=== PATIENT | female | born 2005 | race Two or more races ===

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

== ENCOUNTER 2023-01-22 15:26 | Emergency (ER) | payer MEDICAID, SELFPAY ==
--- NOTE | ~2023-01-22 | CT_ITS ---
EXAMINATION: CT ABDOMEN AND PELVIS WITH CONTRAST CLINICAL INFORMATION: Epigastric, right lower quadrant pain. COMPARISON: None TECHNIQUE: Multidetector volumetric images were obtained from the superior aspect of the liver through the pubic symphysis following administration 85 mL of Omnipaque 350 intravenous contrast. Sagittal and coronal reformatted images were obtained on the technologist's workstation. Oral contrast: No This CT examination was performed using dose optimization techniques as appropriate, variously including the following: *Automated exposure control *Adjustment of mA and/or kV according to patient size (this includes techniques or standardized protocols for targeted exams where dose is matched to indication/reason for exam; i.e. extremities or head) *Use of iterative reconstruction technique DLP: 1360 mGy-cm FINDINGS: LUNG BASES: The visualized lung bases are unremarkable. LIVER, GALLBLADDER, AND BILIARY TREE: The liver is normal in size, shape, and attenuation. No focal hepatic lesion or biliary ductal dilatation is present. The gallbladder is unremarkable with no evidence of radiopaque gallstones, gallbladder wall thickening, or obvious pericholecystic inflammatory changes. PANCREAS: Unremarkable. SPLEEN: Unremarkable. ADRENAL GLANDS: Unremarkable. KIDNEYS AND URETERS: The kidneys are normal in size, shape, and attenuation. No hydronephrosis, hydroureter, or calculi seen. No perinephric stranding. BLADDER: Unremarkable. GASTROINTESTINAL TRACT: There is scattered stool, diverticuli and gas seen throughout the colon without distention. The small bowel loops are normal caliber. Appendix appears normal. No inflammatory process seen in the abdomen. ABDOMINAL WALL: A small umbilical hernia containing fat is noted. LYMPH NODES: Normal. VASCULAR: Unremarkable. PELVIC VISCERA: The uterus is anteverted and appears unremarkable. OSSEOUS STRUCTURES: No aggressive lytic or sclerotic process seen. CT/CT abdomen pelvis w IV con IMPRESSION: 1. No acute intra-abdominal process seen. 2. Scattered colonic diverticulosis without diverticulitis. Fleischner guidelines were followed.
--- NOTE | ~2023-01-22 | US_ITS ---
EXAMINATION: US ABDOMEN LIMITED CLINICAL INFORMATION: Right upper quadrant pain and vomiting.. COMPARISON: None TECHNIQUE: Real-time imaging of the right upper quadrant abdominal viscera. FINDINGS: PANCREAS: Normal. LIVER: The liver is normal in size. The liver contour is normal. Parenchymal echogenicity is slightly increased. No focal hepatic lesion. There is no intrahepatic biliary duct dilatation seen. GALLBLADDER: Normal. The gallbladder is physiologically distended without evidence of stones, sludge, polyps, wall thickening or pericholecystic fluid. COMMON BILE DUCT: Normal in caliber measuring 0.44 cm in diameter. RIGHT KIDNEY: Normal. No hydronephrosis. No renal calculi or focal parenchymal lesions. The kidney measures 11.8 cm in maximum dimension. FREE FLUID: None. US/US abdomen limited IMPRESSION: Mild hepatic fatty infiltration. No focal lesion seen. The gallbladder is unremarkable.
--- NOTE | ~2023-01-22 | XR_ITS ---
EXAMINATION: XR CHEST CLINICAL INFORMATION: SOB and wheezing COMPARISON: None TECHNIQUE: Frontal view of the chest was obtained. FINDINGS: No significant abnormality is noted involving the heart, lungs, mediastinum, bony thorax or soft tissues. XR/XR chest 1V IMPRESSION: Unremarkable chest examination.
[2023-01-22 16:07] VITALS: BP 170/82; PULSE 105; RESP 20; TEMP 36.6; O2SAT 98; BMI 54.3
--- NOTE | 2023-01-22 16:08 | ED_ITS ---
HPI - Abdominal Pain General Chief Complaint: Abdominal Pain <MICHAEL Kebede - Last Filed: 01/22/23 16:12> Stated Complaint: Abdominal Pain/ Diff Breathing <MICHAEL Kebede Last Filed: 01/22/23 16:12> Time Seen by Provider: 01/22/23 16:47 <MICHAEL Kebede Last Filed: 01/22/23 16:12> Source: patient <MICHAEL Galeana - Last Filed: 01/22/23 20:45> Mode of arrival: ambulatory <MICHAEL Galeana Last Filed: 01/22/23 20:45> Limitations: no limitations <MICHAEL Galeana Last Filed: 01/22/23 20:45> History of Present Illness HPI narrative: This is a 17-year-old female hx of asthma presenting to the emergency department with complaints of abdominal pain, nausea, vomiting, dry cough, wheezing and shortness of breath for 2 days worsening. Patient reports abdominal pain is located in the epigastric region and radiates out words in down to the right lower quadrant, describes as sharp, intermittent, severe pain. Also reporting shortness of breath and wheezing tells me she has a history of asthma in this feels like her typical asthma. Denies any recent sick contacts, hx of malignancy, long travel, hx of PE/DV, hypercoagulable do. Denies chest pain, fevers, chills, headache, vision changes, dizziness, weakness, josue tochezia, hematemesis, diarrhea, LE swelling or pain <MICHAEL Galeana Last Filed: 01/22/23 20:45> Related Data Home Medications: Previous Rx's Medication Instructions Recorded azithromycin 250 mg tablet See Rx Instructions PO .COMPLEX #6 10/31/22 (Zithromax Z-[place]) tabs guaifenesin 1,200 mg tablet, 1,200 mg PO BID #10 tabs 10/31/22 extended release 12 hr (Mucinex) hydrocodone-homatropine 5 mg-1.5 5 ml PO Q4-6H PRN cough #60 mL 10/31/22 mg/5 mL (5 mL) oral syrup (Hycodan) prednisone 50 mg tablet 50 mg PO DAILY #5 tabs 12/15/22 metformin 500 mg tablet 500 mg PO BID #60 tabs 12/10/22 albuterol sulfate 90 mcg/actuation 2 inh inhalation Q4-6H PRN 01/22/23 breath activated powder inhaler shortness of breath or wheezing #1 ea benzonatate 100 mg capsule 100 mg PO BID PRN cough #20 caps 01/22/23 prednisone 20 mg tablet 40 mg PO DAILY 5 days #10 tabs 01/22/23 <MICHAEL Kebede - Last Filed: 01/22/23 16:12> Allergies/Adverse Reactions: Allergies Allergy/AdvReac Type Severity Reaction Status Date / Time No Known Allergies Allergy Verified 01/22/23 16:07 <MICHAEL Kebede - Last Filed: 01/22/23 16:12> Review of Systems Review of Systems Constitutional : No Weight loss, No Fever, No Chills, + Fatigue, + Malaise ENT/Mouth : No sore throat, No Rhinorrhea Eyes: No Eye Pain, No Swelling, No Redness Cardiovascular : No Chest Pain, + SOB, No Dyspnea on Exertion, No Orthopnea, No Edema, No Palpitations Respiratory : + Cough, No Sputum, + Wheezing Gastrointestinal : + Nausea, + Vomiting, No Diarrhea, No Constipation, + abdominal Pain, No Hematochezia, No Melena Genitourinary : No Dysuria, No Urinary Frequency, No Hematuria, Musculoskeletal : No joint pain, No Myalgias, No Joint Swelling Skin : No Skin Lesions, No rash Neuro : No Weakness, No Numbness, No Dizziness, No Headache Psych : No Anxiety/Panic, No Depression All other systems reviewed and are negative <MICHAEL Galeana - Last Filed: 01/22/23 20:45> Yes all other systems are reviewed and are negative <MICHAEL Galeana - Last Filed: 01/22/23 20:45> [facility] Past Medical History Attestation statement: The following information was validated with the patient. <MICHAEL Galeana - Last Filed: 01/22/23 20:45> Source: old records reviewed and nursing notes reviewed <MICHAEL Galeana Last Filed: 01/22/23 20:45> Social History Social History: Social History Alcohol intake: never Smoked in Last 30 Days: No Use of substances other than those prescribed or required for medical reasons: No Advance Directives: No Advance Directives Information Provided: No Patient : No <MICHEAL Kebede - Last Filed: 01/22/23 16:12> Physical Exam ED Vital Signs: Vital Signs - 24 hr 01/22/23 16:07 01/22/23 16:52 01/22/23 18:27 Temperature 97.9 F 97.6 F Pulse Rate 105 H 106 H 99 Respiratory Rate 20 20 18 Blood Pressure 170/82 H 155/83 H Pulse Oximetry 98 100 Oxygen Delivery Method Room Air Room Air 01/22/23 19:50 01/22/23 20:22 Temperature 98.4 F Pulse Rate 120 H 106 H Respiratory Rate 22 H 20 Blood Pressure 152/60 H 152/60 H Pulse Oximetry 98 98 Oxygen Delivery Method Room Air Room Air BMI result Body Mass Index 54.3 <MICHAEL Kebede - Last Filed: 01/22/23 16:12> Vital Signs - 24 hr 01/22/23 16:07 01/22/23 16:52 01/22/23 18:27 Temperature 97.9 F 97.6 F Pulse Rate 105 H 106 H 99 Respiratory Rate 20 20 18 Blood Pressure 170/82 H 155/83 H Pulse Oximetry 98 100 Oxygen Delivery Method Room Air Room Air 01/22/23 19:50 01/22/23 20:22 Temperature 98.4 F Pulse Rate 120 H 106 H Respiratory Rate 22 H 20 Blood Pressure 152/60 H 152/60 H Pulse Oximetry 98 98 Oxygen Delivery Method Room Air Room Air BMI result Body Mass Index 54.3 Vital signs stable <MICHAEL Galeana - Last Filed: 01/22/23 20:45> Appearance: Alert.? Oriented X3.? No acute distress.? Head: Normocephalic, atraumatic, no step-offs or deformities Eyes: Pupils equal, round and reactive to light.? Neck: Normal inspection.? Neck supple.? CVS: Normal heart rate and rhythm.? Pulses normal.? Respiratory: No respiratory distress.? Breath sounds w/ expiratory wheezing throughout.? Abdomen: Soft and tenderness to palpation of epigastric, right lower quadrant region.? Skin: Skin warm and dry.? Normal skin color.? Normal skin turgor.? Extremities: No lower extremity edema.? No calf ttp, negative abraham b/l. 5/5 strength to bilateral upper and lower extremities Neuro: Oriented X 3.? No motor deficit.? No sensory deficit. CN 2-12 intact <MICHAEL Galeana - Last Filed: 01/22/23 20:45> Course Course Course Narrative: RME - 17 y/o female with history of morbid obesity, asthma, untreated HTN, untreated and recently diagnosed diabetic who presents to the ER for evaluation of sharp, constant upper abdominal & RUQ pain x 2 days. Worse with food. Also reports vomiting 3-4x over the last couple of days. No diarrhea. Also reports difficulty breathing and asthma flare. Scattered coarse BS and expiratory wheezes in triage. Speaking in complete sentences, SpO2 97%. BP 170/80 w/ HR 115 - reports 9/10 abd pain at this time. Plan: CXR, Labs, RUQ U/S <MICHAEL Kebede - Last Filed: 01/22/23 16:12> Reevaluation(s) Reevaluation #1: Patient's CBC appears to be around baseline. Chemistry with no acute findings requiring intervention. Lipase within normal limits. UA without infection. Urine negative. Ultrasound of abdomen and CT of the abdomen pelvis pending. <MICHAEL Galeana Last Filed: 01/22/23 20:45> Time: 18:05 <MICHAEL Galeana - Last Filed: 01/22/23 20:45> Reevaluation #2: Ultrasound of abdomen limited w/ mild hepatic infiltration. No focal lesion. Gallbladder unremarkable. CT of the abdomen and pelvis with no acute intra-abdominal process seen. <MICHAEL Galeana Last Filed: 01/22/23 20 :45> Time: 19:00 <MICHAEL Galeana Last Filed: 01/22/23 20:45> Reevaluation #3: Upon re-evaluation patient's abdomen is no longer tender to palpation she tells me her abdominal pain is gone. Reports that wheezing has improved after treatment and is no longer feeling short of breath. She is saturating 100% on room air. Denies chest pain. Suspect tachycardia was secondary to albuterol treatments. I do not suspect PE on this patient, no significant risk factors for pulmonary embolism. Advised to return with any new or worsening symptoms. Educated on worrisome signs and symptoms and when to return. Comfortable discharge home. <MICHAEL Galeana - Last Filed: 01/22/23 20:45> Time: 19:08 <MICHAEL Galeana - Last Filed: 01/22/23 20:45> Medical Decision Making Medical Decision Making [facility] Narrative: 1700 17-year-old female presents with nausea, vomiting, abdominal pain, dry cough, shortness of breath and wheezing x2 days. Physical exam significant for tenderness to palpation of epigastric, right lower quadrant region.? There is wheezing throughout all lung chanel on expiration. Concerns for possible cholecystitis versus appendicitis versus viral illness. Unlikely acute abdomen. Shortness of breath likely viral. I do not suspect PE, AAA or pneumonia. Plan at this time labs, imaging, urine. Will give albuterol treatment for wheezing. <MICHAEL Galeana - Last Filed: 01/22/23 20:45> Differential Diagnosis Differential Diagnoses: The differential diagnosis associated with the presentation includes <MICHAEL Galeana - Last Filed: 01/22/23 20:45> Concerns for possible cholecystitis versus appendicitis versus viral illness. Unlikely acute abdomen. Shortness of breath likely viral. I do not suspect PE, AAA or pneumonia. <MICHAEL Galeana - Last Filed: 01/22/23 20:45> Admission/Observation Consideration of admission/observation: Escalation of care including admission/observation considered <MICHAEL Galeana - Last Filed: 01/22/23 20:45> Lab Data [facility] Lab Attestation statement: I reviewed the patient's lab results. <MICHAEL Galeana - Last Filed: 01/22/23 20:45> Result Diagrams: 01/22/23 16:40 01/22/23 16:39 <MICHAEL Kebede - Last Filed: 01/22/23 16:12> Labs: Lab Results 03/08/23 03/08/23 03/08/23 Range/Units 16:39 16:39 16:39 WBC (4.8-10.8) X10*3/uL RBC (4.20-5.50) X10*6/uL Hgb (12.0-16.0) g/dl Hct (37.0-47.0) % MCV (80.0-98.0) fL MCH (27.0-33.0) pg MCHC (31.0-35.0) g/dl RDW (11.0-16.0) % Plt Count (160-400) X10*3/uL MPV (9.4-12.3) fL Immature Gran % (Auto) (0.0-0.4) % Neut % (Auto) (45-73) % Lymph % (Auto) (20-40) % [place] % (Auto) (2-11) % Eos % (Auto) (0-4) % Baso % (Auto) (0-2) % Lymph # (Auto) (1.2-4.9) X10*3/uL [place] # (Auto) (0.1-1.2) X10*3/uL Eos # (Auto) (0.0-0.4) X10*3/uL Baso # (Auto) (0.0-0.2) X10*3/uL Abs Immat Gran (auto) (0.00-0.03) X10*3/uL Absolute Neuts (auto) (2.0-8.3) x10*3/uL Absolute Nucleated RBC (0.0-0.012) X10*3/uL Nucleated RBC % (auto) (0.0-0.2) /100WBC Sodium 141 (135-145) mmol/L Potassium 3.7 (3.3-5.1) mmol/L Chloride 107 (96-108) mmol/L Carbon Dioxide 25 (22-29) mmol/L Anion Gap 13 (12-20) BUN 8 L (9-16) mg/dL Creatinine 0.82 (0.5-1.4) mg/dL Estim Creat Clear Calc 146.2 Estimated GFR > 60 Random Glucose 153 H (60-115) mg/dL Calcium 8.9 D (8.4-10.2) mg/dL Magnesium 1.8 (1.6-2.6) mg/dL Total Bilirubin 0.7 (0.0-1.0) mg/dL Direct Bilirubin 0.2 (0.0-0.5) mg/dL AST 14 (5-31) U/L ALT 12 (0-31) U/L Alkaline Phosphatase 64 (39-117) U/L Total Protein 6.7 (6.5-8.0) g/dL Albumin 3.9 (3.5-5.0) g/dL Lipase 31 (8-78) U/L Urine Color Yellow Urine Appearance Clear Urine pH 6.0 (5.0-9.0) Ur Specific [place] 1.020 (1.005-1.025) Urine Protein Trace (Neg-Trace) mg/dL Urine Glucose (UA) Negative (Negative) mg/dL Urine Ketones Trace (Negative) mg/dL Urine Blood Large (3+) H (Negative) Urine Nitrite Negative (Negative) Ur Leukocyte Esterase Trace H (Negative) Urine RBC 0-2 (0-2) /HPF Urine WBC 0-5 (0-5) /HPF Ur Squamous Epith Cells 0-2 (0-2) /HPF Urine Bacteria None Seen (None Seen) Hyaline Casts 0-2 (0-2) /LPF Urine Test NEGATIVE (NEGATIVE) 01/22/23 Range/Units 16:40 WBC 7.8 (4.8-10.8) X10*3/uL RBC 5.68 H (4.20-5.50) X10*6/uL Hgb 14.4 (12.0-16.0) g/dl Hct 42.5 (37.0-47.0) % MCV 74.8 L (80.0-98.0) fL MCH 25.4 L (27.0-33.0) pg MCHC 33.9 (31.0-35.0) g/dl RDW 12.9 (11.0-16.0) % Plt Count 380 D (160-400) X10*3/uL MPV 8.7 L (9.4-12.3) fL Immature Gran % (Auto) 0.4 (0.0-0.4) % Neut % (Auto) 71.2 (45-73) % Lymph % (Auto) 22.6 (20-40) % [place] % (Auto) 4.7 (2-11) % Eos % (Auto) 1.0 (0-4) % Baso % (Auto) 0.1 (0-2) % Lymph # (Auto) 1.8 (1.2-4.9) X10*3/uL [place] # (Auto) 0.4 (0.1-1.2) X10*3/uL Eos # (Auto) 0.1 (0.0-0.4) X10*3/uL Baso # (Auto) 0.0 (0.0-0.2) X10*3/uL Abs Immat Gran (auto) 0.03 (0.00-0.03) X10*3/uL Absolute Neuts (auto) 5.6 (2.0-8.3) x10*3/uL Absolute Nucleated RBC 0.000 (0.0-0.012) X10*3/uL Nucleated RBC % (auto) 0.0 (0.0-0.2) /100WBC Sodium (135-145) mmol/L Potassium (3.3-5.1) mmol/L Chloride (96-108) mmol/L Carbon Dioxide (22-29) mmol/L Anion Gap (12-20) BUN (9-16) mg/dL Creatinine (0.5-1.4) mg/dL Estim Creat Clear Calc Estimated GFR Random Glucose (60-115) mg/dL Calcium (8.4-10.2) mg/dL Magnesium (1.6-2.6) mg/dL Total Bilirubin (0.0-1.0) mg/dL Direct Bilirubin (0.0-0.5) mg/dL AST (5-31) U/L ALT (0-31) U/L Alkaline Phosphatase (39-117) U/L Total Protein (6.5-8.0) g/dL Albumin (3.5-5.0) g/dL Lipase (8-78) U/L Urine Color Urine Appearance Urine pH (5.0-9.0) Ur Specific [place] (1.005-1.025) Urine Protein (Neg-Trace) mg/dL Urine Glucose (UA) (Negative) mg/dL Urine Ketones (Negative) mg/dL Urine Blood (Negative) Urine Nitrite (Negative) Ur Leukocyte Esterase (Negative) Urine RBC (0-2) /HPF Urine WBC (0-5) /HPF Ur Squamous Epith Cells (0-2) /HPF Urine Bacteria (None Seen) Hyaline Casts (0-2) /LPF Urine Test (NEGATIVE) <MICHAEL Kebede - Last Filed: 01/22/23 16:12> Lab Results 01/22/23 01/22/23 01/22/23 Range/Units 16:39 16:39 16:39 WBC (4.8-10.8) X10*3/uL RBC (4.20-5.50) X10*6/uL Hgb (12.0-16.0) g/dl Hct (37.0-47.0) % MCV (80.0-98.0) fL MCH (27.0-33.0) pg MCHC (31.0-35.0) g/dl RDW (11.0-16.0) % Plt Count (160-400) X10*3/uL MPV (9.4-12.3) fL Immature Gran % (Auto) (0.0-0.4) % Neut % (Auto) (45-73) % Lymph % (Auto) (20-40) % [place] % (Auto) (2-11) % Eos % (Auto) (0-4) % Baso % (Auto) (0-2) % Lymph # (Auto) (1.2-4.9) X10*3/uL [place] # (Auto) (0.1-1.2) X10*3/uL Eos # (Auto) (0.0-0.4) X10*3/uL Baso # (Auto) (0.0-0.2) X10*3/uL Abs Immat Gran (auto) (0.00-0.03) X10*3/uL Absolute Neuts (auto) (2.0-8.3) x10*3/uL Absolute Nucleated RBC (0.0-0.012) X10*3/uL Nucleated RBC % (auto) (0.0-0.2) /100WBC Sodium 141 (135-145) mmol/L Potassium 3.7 (3.3-5.1) mmol/L Chloride 107 (96-108) mmol/L Carbon Dioxide 25 (22-29) mmol/L Anion Gap 13 (12-20) BUN 8 L (9-16) mg/dL Creatinine 0.82 (0.5-1.4) mg/dL Estim Creat Clear Calc 146.2 Estimated GFR > 60 Random Glucose 153 H (60-115) mg/dL Calcium 8.9 D (8.4-10.2) mg/dL Magnesium 1.8 (1.6-2.6) mg/dL Total Bilirubin 0.7 (0.0-1.0) mg/dL Direct Bilirubin 0.2 (0.0-0.5) mg/dL AST 14 (5-31) U/L ALT 12 (0-31) U/L Alkaline Phosphatase 64 (39-117) U/L Total Protein 6.7 (6.5-8.0) g/dL Albumin 3.9 (3.5-5.0) g/dL Lipase 31 (8-78) U/L Urine Color Yellow Urine Appearance Clear Urine pH 6.0 (5.0-9.0) Ur Specific [place] 1.020 (1.005-1.025) Urine Protein Trace (Neg-Trace) mg/dL Urine Glucose (UA) Negative (Negative) mg/dL Urine Ketones Trace (Negative) mg/dL Urine Blood Large (3+) H (Negative) Urine Nitrite Negative (Negative) Ur Leukocyte Esterase Trace H (Negative) Urine RBC 0-2 (0-2) /HPF Urine WBC 0-5 (0-5) /HPF Ur Squamous Epith Cells 0-2 (0-2) /HPF Urine Bacteria None Seen (None Seen) Hyaline Casts 0-2 (0-2) /LPF Urine Test NEGATIVE (NEGATIVE) 01/22/23 Range/Units 16:40 WBC 7.8 (4.8-10.8) X10*3/uL RBC 5.68 H (4.20-5.50) X10*6/uL Hgb 14.4 (12.0-16.0) g/dl Hct 42.5 (37.0-47.0) % MCV 74.8 L (80.0-98.0) fL MCH 25.4 L (27.0-33.0) pg MCHC 33.9 (31.0-35.0) g/dl RDW 12.9 (11.0-16.0) % Plt Count 380 D (160-400) X10*3/uL MPV 8.7 L (9.4-12.3) fL Immature Gran % (Auto) 0.4 (0.0-0.4) % Neut % (Auto) 71.2 (45-73) % Lymph % (Auto) 22.6 (20-40) % [place] % (Auto) 4.7 (2-11) % Eos % (Auto) 1.0 (0-4) % Baso % (Auto) 0.1 (0-2) % Lymph # (Auto) 1.8 (1.2-4.9) X10*3/uL [place] # (Auto) 0.4 (0.1-1.2) X10*3/uL Eos # (Auto) 0.1 (0.0-0.4) X10*3/uL Baso # (Auto) 0.0 (0.0-0.2) X10*3/uL Abs Immat Gran (auto) 0.03 (0.00-0.03) X10*3/uL Absolute Neuts (auto) 5.6 (2.0-8.3) x10*3/uL Absolute Nucleated RBC 0.000 (0.0-0.012) X10*3/uL Nucleated RBC % (auto) 0.0 (0.0-0.2) /100WBC Sodium (135-145) mmol/L Potassium (3.3-5.1) mmol/L Chloride (96-108) mmol/L Carbon Dioxide (22-29) mmol/L Anion Gap (12-20) BUN (9-16) mg/dL Creatinine (0.5-1.4) mg/dL Estim Creat Clear Calc Estimated GFR Random Glucose (60-115) mg/dL Calcium (8.4-10.2) mg/dL Magnesium (1.6-2.6) mg/dL Total Bilirubin (0.0-1.0) mg/dL Direct Bilirubin (0.0-0.5) mg/dL AST (5-31) U/L ALT (0-31) U/L Alkaline Phosphatase (39-117) U/L Total Protein (6.5-8.0) g/dL Albumin (3.5-5.0) g/dL Lipase (8-78) U/L Urine Color Urine Appearance Urine pH (5.0-9.0) Ur Specific [place] (1.005-1.025) Urine Protein (Neg-Trace) mg/dL Urine Glucose (UA) (Negative) mg/dL Urine Ketones (Negative) mg/dL Urine Blood (Negative) Urine Nitrite (Negative) Ur Leukocyte Esterase (Negative) Urine RBC (0-2) /HPF Urine WBC (0-5) /HPF Ur Squamous Epith Cells (0-2) /HPF Urine Bacteria (None Seen) Hyaline Casts (0-2) /LPF Urine Test (NEGATIVE) <MICHAEL Galeana - Last Filed: 01/22/23 20:45> Independent Interpretation I performed an independent interpretation of an: Ultrasound (US/US abdomen limited IMPRESSION: Mild hepatic fatty infiltration. No focal lesion seen. The gallbladder is unremarkable.) and CT Scan (CT/CT abdomen pelvis w IV con IMPRESSION: 1. No acute intra-abdominal process seen. 2. Scattered colonic diverticulosis without diverticulitis. Fleischner guidelines were followed.) <MICHAEL Galeana - Last Filed: 01/22/23 20:45> Radiology Impression Discussion of test interpretation with radiology: I have reviewed the radiologist's reading. <MICHAEL Galeana - Last Filed: 01/22/23 20:45> Core Measures AMI core measures followed: Yes <MICHAEL Galeana - Last Filed: 01/22/23 20:45> Measure exclusions: not indicated <MICHAEL Galeana - Last Filed: 01/22/23 20:45> Medications Administered Discontinued Medications Generic Name Dose Route Start Last Admin Trade Name Freq PRN Reason Stop Dose Admin Albuterol Sulfate 10 mg 01/22/23 17:29 01/22/23 18:23 Albuterol Sulfate (0.083%) 2.5 Mg/3 Ml Vial.Neb INHALE 01/22/23 17:30 10 mg ONCE ONE Administration Iohexol 100 ml 01/22/23 17:46 01/22/23 17:47 Iohexol 350 Mg/Ml 100 Ml Infus..Btl IV 01/22/23 17:47 100 ml ONCE ONE Administration Ketorolac Tromethamine 30 mg 01/22/23 17:58 01/22/23 18:23 Ketorolac Tromethamine 15 Mg/Ml Vial IVPUSH 01/22/23 17:59 30 mg ONCE ONE Administration <MICHAEL Kebede - Last Filed: 01/22/23 16:12> Medications Administered Discontinued Medications Generic Name Dose Route Start Last Admin Trade Name Blair PRN Reason Stop Dose Admin Albuterol Sulfate 10 mg 01/22/23 17:29 01/22/23 18:23 Albuterol Sulfate (0.083%) 2.5 Mg/3 Ml Vial.Neb INHALE 01/22/23 17:30 10 mg ONCE ONE Administration Iohexol 100 ml 01/22/23 17:46 01/22/23 17:47 Iohexol 350 Mg/Ml 100 Ml Infus..Btl IV 01/22/23 17:47 100 ml ONCE ONE Administration Ketorolac Tromethamine 30 mg 01/22/23 17:58 01/22/23 18:23 Ketorolac Tromethamine 15 Mg/Ml Vial IVPUSH 01/22/23 17:59 30 mg ONCE ONE Administration <MICHAEL Galeana - Last Filed: 01/22/23 20:45> Critical Care Time Critical Care Time Critical Care Time: No <MICHAEL Galeana - Last Filed: 01/22/23 20:45> Discharge Plan Discharge Clinical Impression: Abdominal pain, Nausea & vomiting, Cough <MICHAEL Kebede - Last Filed: 01/22/23 16:12> Patient Disposition: Home, Self-Care <MICHAEL Kebede - Last Filed: 01/22/23 16:12> Instructions: Acute Nausea and Vomiting (ED), Abdominal Pain (ED), Acute Cough (ED) <MICHAEL Kebede Last Filed: 01/22/23 16:12> Additional Instructions: Take your medications as prescribed. If you were prescribed antibiotics today, it is important that you take your medication to their entirety, do not skip any doses, do not finish them early. Follow-up with your primary care provider this week. Return to the emergency department with new or worsening symptoms. Such as fevers, chills, chest pain, shortness of breath, nausea, vomiting, dizziness, headache, vision changes, lethargy In case of emergency call 911 <MICHAEL Kebede - Last Filed: 01/22/23 16:12> Prescriptions: New benzonatate 100 mg capsule 100 mg PO BID PRN (Reason: cough) Qty: 20 0RF albuterol sulfate 90 mcg/actuation aerosol powdr breath activated 2 inh inhalation Q4-6H PRN (Reason: shortness of breath or wheezing) Qty: 1 0RF prednisone 20 mg tablet 40 mg PO DAILY 5 Days Qty: 10 0RF No Action prednisone 50 mg tablet 50 mg PO DAILY Qty: 5 0RF azithromycin [Zithromax Z-[place]] 250 mg tablet See Rx Instructions .ROUTE .COMPLEX Qty: 6 0RF Rx Instructions: take 500 mg today (day 1), then 250 mg for 4 days (days 2-5) Mucinex 1,200 mg tablet extended release 12hr 1,200 mg PO BID Qty: 10 0RF hydrocodone-homatropine [Hycodan] 5-1.5 mg/5 mL (5 mL) syrup 5 ml PO Q4-6H PRN (Reason: cough) Qty: 60 0RF Rx Instructions: Partial Fill upon patient request. metformin 500 mg tablet 500 mg PO BID Qty: 60 0RF <MICHAEL Kebede - Last Filed: 01/22/23 16:12> Referrals: [facility] [place] [facility] [Provider Group] - 1 week Felisa Osman MD [Primary Care Provider] - 2 days <MICHAEL Kebede - Last Filed: 01/22/23 16:12> Stand Alone Forms: Work/School Release <MICHAEL Kebede - Last Filed: 01/22/23 16:12> Interventions: ED Discharge Assessment Last Done: 01/22/23 20:24 <MICHAEL Kebede - Last Filed: 01/22/23 16:12> Discharge Date/Time: 01/22/23 20:24 <MICHAEL Kebede - Last Filed: 01/22/23 16:12>
[2023-01-22 16:47] LABS: MANUAL DIFF FLAG NO
[2023-01-22 16:51] LABS: Appearance Urine Clear; Color Urine Yellow; Glucose Urine UA Negative (Negative); Leukocyte Esterase Urine Trace (Negative); Nitrite Urine Negative (Negative); UMIC TRIGGER UACC YES; Urine Blood Large (3+) (Negative); Urine Ketones Trace mg/dL (Negative); Urine Protein Trace mg/dL (Neg-Trace)
[2023-01-22 16:52] VITALS: BP 155/83; PULSE 106; RESP 20; TEMP 36.4; O2SAT 100
[2023-01-22 16:57] LABS: UPreg QC Valid YES; Urine Pregnancy NEGATIVE (NEGATIVE)
[2023-01-22 16:57] LABS: Basophils Percent Auto 0.1 % (0-2); Eosinophils Absolute Auto 0.1 X10*3/uL (0.0-0.4); Hematocrit 42.5 % (37.0-47.0); Hemoglobin 14.4 g/dl (12.0-16.0); Imm Gran Abs Auto 0.03 X10*3/uL (0.00-0.03); Imm Gran Pct Auto 0.4 % (0.0-0.4); Lymphocytes Absolute Auto 1.8 X10*3/uL (1.2-4.9); Lymphocytes Percent Auto 22.6 % (20-40); Mean Corpuscular HGB Conc 33.9 g/dl (31.0-35.0); Mean Corpuscular Hemoglobin 25.4 pg (27.0-33.0); Mean Corpuscular Volume 74.8 fL (80.0-98.0); Mean Platelet Volume 8.7 fL (9.4-12.3); Monocytes Absolute Auto 0.4 X10*3/uL (0.1-1.2); Monocytes Percent Auto 4.7 % (2-11); Neutrophils Absolute Auto 5.6 x10*3/uL (2.0-8.3); Neutrophils Percent Auto 71.2 % (45-73); Platelet Count 380 X10*3/uL (160-400); Red Blood Count 5.68 X10*6/uL (4.20-5.50); Red Cell Distribution Width 12.9 % (11.0-16.0); White Blood Count 7.8 X10*3/uL (4.8-10.8)
[2023-01-22 17:07] LABS: Alanine Aminotransferase 12 U/L (0-31); Albumin Level 3.9 g/dL (3.5-5.0); Alkaline Phosphatase 64 U/L (39-117); Anion Gap 13 (12-20); Aspartate Amino Transferase 14 U/L (5-31); Bilirubin Direct 0.2 mg/dL (0.0-0.5); Bilirubin Total 0.7 mg/dL (0.0-1.0); Blood Urea Nitrogen 8 mg/dL (9-16); Calcium 8.9 mg/dL (8.4-10.2); Carbon Dioxide 25 mmol/L (22-29); Chloride 107 mmol/L (96-108); Creatinine Clr Calc Pharmacy 146.2; Estimated Glomerular Filt Rate > 60; Glucose Random 153 mg/dL (60-115); Lipase 31 U/L (8-78); Magnesium 1.8 mg/dL (1.6-2.6); Potassium 3.7 mmol/L (3.3-5.1); Sodium 141 mmol/L (135-145); Total Protein 6.7 g/dL (6.5-8.0)
[2023-01-22 17:18] LABS: Bacteria Urine None Seen (None Seen); Hyaline Casts Urine 0-2 /LPF (0-2); RBC Urine 0-2 /HPF (0-2); Squamous Epithelial Cell Urine 0-2 /HPF (0-2); WBC Urine 0-5 /HPF (0-5)
--- NOTE | 2023-01-22 17:23 | PC.NURSE ---
pt a&ox3, hypertensive, other vss, pt reporting RLQ and central abd pain 07/27, 20G IV placed left IV, additional lavender tube drawn, u/s at bedside. no new orders at this time.
[2023-01-22] MEDS: iohexoL 350 MG/ML 100 ML INFUS..BTL IV (17:47)
[2023-01-22] MEDS: Ketorolac Tromethamine 15 MG/ML VIAL 30 MG IVPUSH (18:23)
[2023-01-22] MEDS: Albuterol Sulfate (0.083%) 2.5 MG/3 ML VIAL.NEB 10 MG INHALE (18:23)
[2023-01-22 18:27] VITALS: PULSE 99; RESP 18; O2SAT 100
[2023-01-22 19:50] VITALS: BP 152/60; PULSE 120; RESP 22; TEMP 36.9; O2SAT 98
[2023-01-22 20:22] VITALS: BP 152/60; PULSE 106; RESP 20; O2SAT 98
--- NOTE | 2023-01-22 20:22 | PC.NURSE ---
Assumed care at 7:00pm from ABDIFATAH Rojas, denies any sob or chest pain, Reviewed discharge instructions from pt, pt verbalized understanding. Pt discharged home with family member. No sign of distress.
== END 2023-01-22 20:24 | disposition home or self-care (01) ==
PROVIDERS: Physician Assistant; Emergency Provider Student in an Organized Health Care Education/Training Program; PCP Family Medicine
DX: R10.11 Right upper quadrant pain (principal); R11.2 Nausea with vomiting, unspecified; R05.9 Cough, unspecified; R06.02 Shortness of breath; E11.9 Type 2 diabetes mellitus without complications; I10 Essential (primary) hypertension; J45.909 Unspecified asthma, uncomplicated; Z79.84 Long term (current) use of oral hypoglycemic drugs; Z79.899 Other long term (current) drug therapy
CPT/HCPCS: 36415; 71045; 74177; 76705; 80048; 80076; 81001; 81025; 83690; 83735; 85025; 94640; 96374; 99284; 99285; J1885; Q9967

== ENCOUNTER 2023-02-05 16:34 | Emergency (ER) | payer MEDICAID, SELFPAY | END 2023-02-05 17:45 | disposition left against medical advice (07) | PROVIDERS: Emergency Provider Emergency Medicine; PCP Family Medicine | DX: S89.90XA Unspecified injury of unspecified lower leg, initial encounter (principal); X58.XXXA Exposure to other specified factors, initial encounter ==

== ENCOUNTER 2023-08-04 17:04 | Outpatient (REF) | payer MEDICAID, SELFPAY ==
[2023-08-05 09:43] LABS: CT PCR NOT DETECTED (Not Detect.); NG PCR NOT DETECTED (Not Detect.)
== END 2023-08-04 17:05 | disposition home or self-care (01) ==
LOC: HO.HHCLNP 17:04
PROVIDERS: Visit Provider Advanced Practice Midwife
DX: Z11.3 Encounter for screening for infections with a predominantly sexual mode of transmission (principal); N93.9 Abnormal uterine and vaginal bleeding, unspecified
CPT/HCPCS: 0353U

== ENCOUNTER 2023-08-06 09:13 | Outpatient (AMB) | payer MEDICAID, SELFPAY ==
--- NOTE | 2023-08-06 09:13 | MHC.OFFVIS ---
Intake Vital Signs 08/06/23 09:19 Weight 329 lb BP 150/70 H Blood Pressure Location Rt brachial Position Sitting Pulse 101 H Intake Visit Reasons: Nexplanon removal Intake Note: This patient presents for a consultation for nexplanon removal. Patient c/o; nexplanon was attempted to be removed by PCP on 08/04/23 but it broke, 2.5 cm. Stage Driver Required: No Accompanied by: Self / Same As Patient Allergies Flu Shot Allergy (Severe, Uncoded 08/06/23 09:22) Unknown Medication List - Last Reconciled 08/06/23 by Bryon Rockwell MD albuterol sulfate 90 mcg/actuation 2 inhalations inhalation Q4-6H PRN loratadine 10 mg PO DAILY metformin 500 mg PO BID HPI Nexplanon removal HPI Details 17-year-old female referred for Nexplanon implant removal. She states that she had this placed a year and a half ago. However she feels that this has been causing her problems so she wanted removed. She that she did not have periods for more than 10 months since she had her implant done. She says her bulk materials handling plant operator had attempted to remove this under local anesthesia but a piece broke off. This was a 1.5 cm piece of the implant. He was therefore referred to me for removal of the rest of the implant . [facility] Medical History Morbid obesity Nexplanon in place Family History (Updated 08/06/23 @ 09:24 by GILBERT Garcia) Other Throat cancer Social History Alcohol intake: never Female Reproductive History Menstrual Date of last menstrual period: 07/28/23 Review of Systems Const Denies chills and Denies fever(s) Card Denies chest pain, Denies dyspnea and Denies dyspnea on exertion Resp Denies cough, Denies dyspnea and Denies dyspnea on exertion GI Denies hematochezia and Denies change in bowel habits Denies hematuria Musc Denies back pain and Denies limited range of motion Neuro Denies focal weakness and Denies convulsions Psych Denies depression and Denies mood swings Physical Exam Vital Signs: Last Vital Signs Pulse 101 H 08/06/23 09:19 BP 150/70 H 08/06/23 09:19 Const Other: Morbidly obese General: comfortable and no acute distress Orientation/consciousness: patient oriented x3 Neck Neck: Yes no lymphadenopathy Resp Auscultation: clear to auscultation bilaterally Cardio Rhythm: regular rhythm GI Palpation (GI): Soft to palpation, nontender and no guarding Neuro General: patient oriented x3 Extrem Other: Implant palpable on the inner aspect of the left upper arm, sent incisions seen as well, healed Assessment & Plan Assessment & Plan (1) Nexplanon in place: Code(s): Z97.5 - Presence of (intrauterine) contraceptive device Plan: She was referred for removal of the Nexplanon implant. Her bulk materials handling plant operator had attempted to remove this but only about 1.5 cm segment was removed. She was referred to me for removal the rest of the implant therefore I explained to the technique of removal of the rest of the implant under local anesthesia.. I reviewed the risks including but not limited to bleeding, infections, poor healing, postop pain, as well as the benefits and alternatives. She says she understands and agrees to proceed. She also understands what to expect postoperatively. Coding Level of Care Code New Pt Level 3 (68996) Diagnoses Nexplanon in place Z97.5
[2023-08-06 09:19] VITALS: BP 150/70; PULSE 101
== END 2023-08-06 09:36 | disposition home or self-care (01) ==
PROVIDERS: PCP Family Medicine; Visit Provider Surgery
DX: Z97.5 Presence of (intrauterine) contraceptive device (principal)
CPT/HCPCS: 99203

== ENCOUNTER → 2023-08-06 09:13 | Outpatient (BNVA) | payer MEDICAID, SELFPAY | PROVIDERS: PCP Family Medicine; Visit Provider Surgery ==

== ENCOUNTER 2023-08-20 12:38 | Outpatient (REF) | payer MEDICAID, SELFPAY ==
[2023-08-20 12:22] VITALS: BP 183/95; PULSE 95; RESP 20; TEMP 36.7; O2SAT 99; BMI 49.8
[2023-08-20 13:18] VITALS: BP 166/94; PULSE 86; RESP 19; O2SAT 99
--- NOTE | 2023-08-20 13:18 | P.OP_ITS ---
Operative Note Operative Note Date of Service: 08/20/23 Narrative: Preop diagnosis: Nexplanon implant left upper arm Postop diagnosis: The same Procedure: Removal of Nexplanon implant under local anesthesia from the left upper arm Surgeon:Bryon Rockwell MD the patient is a 17-year-old female here for removal of her Nexplanon implant. She stated that her manager merchandise had attempted to remove this but this had broken and a longer part was left in place. She understood the technique of the planned procedure as well as the risks, benefits, and alternatives. She was brought to the minor procedure room. She was placed supine with left arm abducted. The area of the implant which was palpable was prepped and draped. Lidocaine 1% was used for local anesthesia. I made an incision on the skin overlying the palpable implant using blade 15. This carried down with blunt dissection through the full-thickness of the skin and subcutaneous fat until the implant was directly visualized. I grasped with a clamp and proceeded to gently dissect this off of the rest of the subcutaneous layer until this was removed. This was sent as a specimen for gross exam. I closed the incision with full-thickness nylon 3-0 simple interrupted sutures. The procedure was completed. The patient tolerated the procedure well. There were no immediate complications. She was given wound care instructions.
== END 2023-08-20 12:39 | disposition home or self-care (01) ==
LOC: HO.MS 12:38
PROVIDERS: PCP Family Medicine; Visit Provider Surgery
PROC: (CPT 11982; principal; 2023-08-20 13:00)
DX: Z30.46 Encounter for surveillance of implantable subdermal contraceptive (principal)
CPT/HCPCS: 11982; 88300

== ENCOUNTER → 2023-08-20 12:38 | Outpatient (BNV) | payer MEDICAID, SELFPAY | PROVIDERS: PCP Family Medicine; Visit Provider Surgery | DX: Z30.46 Encounter for surveillance of implantable subdermal contraceptive (principal) | CPT/HCPCS: 11982 ==

== ENCOUNTER 2023-09-15 13:39 | Outpatient (AMB) | payer MEDICAID, SELFPAY ==
--- NOTE | 2023-09-15 13:42 | A.OFFVIS_ITS ---
Intake Vital Signs 09/15/23 13:49 Height 5 ft 4 in Weight 339 lb BMI 58.2 BP 141/65 H Blood Pressure Location Rt brachial Position Sitting Pulse 80 Intake Visit Reasons: s/p Nexplanon removal Intake Note: This patient presents for a post-op assessment status post Nexplanon removal. Patient c/o; reports no complaints. 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 She says she has been doing well and denies complaints. [facility] Medical History Morbid obesity Nexplanon in place Surgical History Nexplanon removal (~08/20/23) Family History Other Throat cancer Social History Alcohol intake: never Review of Systems Const Denies chills and Denies fever(s) Card Denies chest pain, Denies dyspnea and Denies dyspnea on exertion Resp Denies cough, Denies dyspnea and Denies dyspnea on exertion GI Denies hematochezia and Denies change in bowel habits Denies hematuria Musc Denies back pain and Denies limited range of motion Neuro Denies focal weakness and Denies convulsions Psych Denies depression and Denies mood swings Physical Exam Const General: comfortable and no acute distress Extrem Other: Incision on the left upper arm is well healed, not infected, sutures still in place Assessment & Plan Assessment & Plan (1) Nexplanon in place: Code(s): Z97.5 - Presence of (intrauterine) contraceptive device Plan: She is status post removal of a Nexplanon implant. She is doing well. The incision is well healed. I removed her sutures. She can follow up on a p.r.n. basis. Coding Level of Care Code Global (00342) Diagnoses Nexplanon in place Z97.5
[2023-09-15 13:49] VITALS: BP 141/65; PULSE 80; BMI 58.2
== END 2023-09-15 13:58 | disposition home or self-care (01) ==
PROVIDERS: PCP Family Medicine; Visit Provider Surgery
DX: Z09 Encounter for follow-up examination after completed treatment for conditions other than malignant neoplasm (principal)
CPT/HCPCS: 99212

== ENCOUNTER → 2023-09-15 13:39 | Outpatient (BNVA) | payer MEDICAID, SELFPAY | PROVIDERS: PCP Family Medicine; Visit Provider Surgery | DX: Z09 Encounter for follow-up examination after completed treatment for conditions other than malignant neoplasm (principal) | CPT/HCPCS: 99212 ==

== ENCOUNTER 2024-02-27 17:52 | Outpatient (REF) | payer MEDICAID, SELFPAY ==
[2024-02-28 02:55] LABS: CT PCR NOT DETECTED (Not Detect.); NG PCR NOT DETECTED (Not Detect.)
[2024-02-28 13:22] LABS: BV Int Neg Control Negative (Negative); BV Int Pos Control Positive (Positive)
== END 2024-02-27 17:53 | disposition home or self-care (01) ==
LOC: HO.HHCLNP 17:52
PROVIDERS: Visit Provider Emergency Medicine
DX: R39.9 Unspecified symptoms and signs involving the genitourinary system (principal); N89.8 Other specified noninflammatory disorders of vagina
CPT/HCPCS: 0353U; 87086; 87480; 87510; 87660

== ENCOUNTER 2024-04-02 11:07 | Inpatient (IN) | payer OTHER, SELFPAY ==
--- NOTE | 2024-04-02 | ECG_ITS ---
Test Reason : POISON CONTROL Blood Pressure : / mmHG Vent. Rate : 072 BPM Atrial Rate : 072 BPM P-R Int : 136 ms QRS Dur : 090 ms QT Int : 382 ms P-R-T Axes : 037 064 012 degrees QTc Int : 418 ms Normal sinus rhythm Normal ECG When compared with ECG of 02-APR-2024 11:36, No significant change was found Referred By: Laura Krishnan Electronically Signed By:GALINDO HAMMOND MD
[2024-04-02 11:22] VITALS: BP 144/83; BP 154/63; PULSE 104; PULSE 86; RESP 18; TEMP 37.1; O2SAT 99; BMI 61.4
--- NOTE | 2024-04-02 11:26 | ECG_ITS ---
Test Reason : overdose Blood Pressure : / mmHG Vent. Rate : 090 BPM Atrial Rate : 090 BPM P-R Int : 128 ms QRS Dur : 084 ms QT Int : 368 ms P-R-T Axes : 057 068 011 degrees QTc Int : 450 ms Normal sinus rhythm Normal ECG No previous ECGs available Referred By: Laura Krishnan Electronically Signed By:GALINDO HAMMOND MD
[2024-04-02] MEDS: Activated charcoaL 50 GM/240 ML ORAL.SUSP PO (11:32)
--- NOTE | 2024-04-02 11:46 | ED_ITS ---
HPI - Psych General Chief Complaint: Psychiatric Symptoms Stated Complaint: SI ATTEMPT Time Seen by Provider: 04/02/24 11:17 Source: patient and EMS Mode of arrival: EMS Limitations: no limitations History of Present Illness HPI Narrative: 18 yo female with depression, obesity, diabetes has been depressed lately does not have therapist and today she was feeling down and abruptly took approx 15 tablets of 25mg benadryl around 1030am. She states she has never done this before and it was impulsive. She states she isn't sure why if this was SI attempt MD complaint: feels depressed Onset (ago): week(s) Duration: getting worse History of same: Yes Relieving factors: none Exacerbating factors: other Context: significant life stressor Associated psychiatric symptoms: depression Associated symptoms: denies other symptoms If self harm: admits thoughts of self harm and intentional overdose Related Data Home Medications ?Medication ?Instructions ?Recorded ?Confirmed loratadine 10 mg tablet 10 mg PO DAILY 08/06/23 08/06/23 Previous Rx's ?Medication ?Instructions ?Recorded metformin 500 mg tablet 500 mg PO BID #60 tabs 12/10/22 albuterol sulfate 90 mcg/actuation 2 inh inhalation Q4-6H PRN 01/22/23 breath activated powder inhaler shortness of breath or wheezing #1 ea Allergies Allergy/AdvReac Type Severity Reaction Status Date / Time Flu Shot Allergy Severe Unknown Uncoded 04/02/24 11:23 Review of Systems 2 Review of Systems: Constitutional : No Fever, No Chills ENT/Mouth : No Ear Pain, No Nasal Congestion, No sore throat Eyes: No Eye Pain, No Swelling, No Redness Cardiovascular : No Chest Pain, No SOB Respiratory : No Cough, No Sputum, No Dyspnea Gastrointestinal : No Nausea, No Vomiting, No Diarrhea, No Hematochezia, No Melena Genitourinary : No Dysuria, No Urinary Frequency, No Hematuria Musculoskeletal : No Myalgias Skin : No Skin Lesions, No rash Neuro : No Weakness, No Numbness, No Paresthesias, No Dizziness, No Headache Psych : positive Anxiety, positive Depression, positive SI no HI All other systems reviewed and are negative [facility] Past Medical History Attestation statement: The following information was validated with the patient. Source: old records reviewed Medical History Morbid obesity Nexplanon in place Surgical History Nexplanon removal (~08/20/23) Family History Family History Other Throat cancer Social History Social History (Updated 04/02/24 @ 12:01 by Laura Krishnan DO) Alcohol intake: never Patient Tobacco Use Status: Never used Tobacco Smoked in Last 30 Days: No Use of substances other than those prescribed or required for medical reasons: Yes Substance Use Type: Marijuana Advance Directives: No Advance Directives Information Provided: No Patient : No Physical Exam 2 Vital Signs: Vital Signs: Last Vital Signs Temp 98.7 F 04/02/24 11:22 Pulse 86 04/02/24 11:22 Resp 18 04/02/24 11:22 BP 154/63 H 04/02/24 11:22 Pulse Ox 99 04/02/24 11:22 O2 Del Method Room Air 04/02/24 11:22 BMI result Body Mass Index 61.4 Appearance: Alert. Oriented X3. No acute distress. Eyes: Pupils equal, round and reactive to light. ENT: Pharynx normal. Neck: Normal inspection. Neck supple. CVS: Normal heart rate and rhythm. Pulses normal. Respiratory: No respiratory distress. Breath sounds normal. Abdomen: Soft and nontender. Skin: Skin warm and dry. Normal skin color. Normal skin turgor. Extremities: No lower extremity edema. No calf ttp Neuro: Oriented X 3. No motor deficit. No sensory deficit. CN2-12 intact Course Course Course Narrative: up and eating more alert Medications Administered Discontinued Medications Generic Name Dose Route Start Last Admin Trade Name Blair PRN Reason Stop Dose Admin Charcoal 50 gm 04/02/24 11:26 04/02/24 11:32 Activated Charcoal 50 Gm/240 Ml Oral.Susp PO 04/02/24 11:27 50 gm ONCE ONE Administration Potassium Chloride 40 meq 04/02/24 13:53 04/02/24 14:44 Potassium Chloride Packet 20 Meq Packet PO 04/02/24 13:54 40 meq ONCE ONE Administration Medical Decision Making Medical Decision Making [facility] Narrative: 18 yo female with depression, obesity, diabetes here with c/o intentional benadryl overdose in setting of depression - at this time she drank charcoal already at 1 hour seymour, EKG, labs and CARE team consult - poison control recommends observation for 6 hours Differential Diagnosis Differential Diagnoses: The differential diagnosis associated with the presentation includes ingestion, depression, SI attempt Admission/Observation Consideration of admission/observation: Escalation of care including admission/observation considered physician observation started at 1155am pending medical clearance and CARE team consult Consult Healthcare Provider Management of the patient was discussed with: Supervisor [facility] Provider monitor for anticholinergic symptoms, monitor for 6 hours Lab Data [facility] Lab Attestation statement: I reviewed the patient's lab results. 04/02/24 12:00 04/02/24 12:00 Labs: Lab Results 04/02/24 Range/Units 12:00 WBC 4.6 L (4.8-10.8) X10*3/uL RBC 5.08 (4.20-5.50) X10*6/uL Hgb 12.6 (12.0-16.0) g/dl Hct 38.2 (37.0-47.0) % MCV 75.2 L (80.0-98.0) fL MCH 24.8 L (27.0-33.0) pg MCHC 33.0 (31.0-35.0) g/dl RDW 14.2 (11.0-16.0) % Plt Count 312 (160-400) X10*3/uL MPV 8.6 L (9.4-12.3) fL Immature Gran % (Auto) 0.2 (0.0-0.4) % Neut % (Auto) 58.0 (45-73) % Lymph % (Auto) 31.9 (20-40) % [place] % (Auto) 7.3 (2-11) % Eos % (Auto) 2.2 (0-4) % Baso % (Auto) 0.4 (0-2) % Lymph # (Auto) 1.5 (1.2-4.9) X10*3/uL [place] # (Auto) 0.3 (0.1-1.2) X10*3/uL Eos # (Auto) 0.1 (0.0-0.4) X10*3/uL Baso # (Auto) 0.0 (0.0-0.2) X10*3/uL Abs Immat Gran (auto) 0.01 (0.00-0.03) X10*3/uL Absolute Neuts (auto) 2.7 (2.0-8.3) x10*3/uL Absolute Nucleated RBC 0.000 (0.0-0.012) X10*3/uL Nucleated RBC % (auto) 0.0 (0.0-0.2) /100WBC Sodium 140 (135-145) mmol/L Potassium 3.6 (3.3-5.1) mmol/L Chloride 109 H (96-108) mmol/L Carbon Dioxide 22 (22-29) mmol/L Anion Gap 13 (12-20) BUN 9 (9-16) mg/dL Creatinine 0.81 (0.5-1.4) mg/dL Estim Creat Clear Calc 297.4 Estimated GFR > 60 Random Glucose 144 H (60-115) mg/dL Calcium 8.5 (8.4-10.2) mg/dL Magnesium 2.0 (1.6-2.6) mg/dL Total Bilirubin 0.5 (0.0-1.0) mg/dL Direct Bilirubin 0.2 (0.0-0.5) mg/dL AST 17 (5-31) U/L ALT 16 (0-31) U/L Alkaline Phosphatase 59 (39-117) U/L Total Protein 7.3 (6.5-8.0) g/dL Albumin 3.8 (3.5-5.0) g/dL Lipase 19 (8-78) U/L Beta HCG, Quant < 2 mIU/mL Urine Color Yellow Urine Appearance Clear Urine pH 5.5 (5.0-9.0) Ur Specific [place] 1.020 (1.005-1.025) Urine Protein 30 (1+) H (Neg-Trace) mg/dL Urine Glucose (UA) Negative (Negative) mg/dL Urine Ketones Trace (Negative) mg/dL Urine Blood Moderate (2+) H (Negative) Urine Nitrite Negative (Negative) Ur Leukocyte Esterase Negative (Negative) Urine RBC 11-20 H (0-2) /HPF Urine WBC 0-5 (0-5) /HPF Ur Squamous Epith Cells 3-5 (0-2) /HPF Urine Bacteria None Seen (None Seen) Hyaline Casts 6-10 (0-2) /LPF Salicylates < 5.0 L (15-30) mg/dL Urine Opiates Screen Not Detected (Not Detect) Ur Buprenorphine Scrn Not Detected (Not Detect) ng/mL Ur Oxycodone Screen Not Detected (Not Detect) ng/mL Urine Methadone Screen Not Detected (Not Detect) ng/mL Urine Fentanyl Screen Not Detected (Not Detect) Acetaminophen < 3 (<30) mcg/mL Ur Barbiturates Screen Not Detected (Not Detect) Ur Phencyclidine Scrn Not Detected (Not Detect) Ur Amphetamines Screen Not Detected (Not Detect) U Benzodiazepines Scrn Not Detected (Not Detect) Urine Cocaine Screen Not Detected (Not Detect) U Marijuana (THC) Screen POSITIVE H (Not Detect) Ethyl Alcohol < 10 mg/dL Independent Interpretation I performed an independent interpretation of an: EKG Interpretation: Rate: 90 Rhythm: NSR [place]: normal Normal P waves. Normal [place]. Normal QRS complex. ST T wave : normal no RENAN qTC: 450 prior studies: no acute ischemia The study has been interpreted contemporaneously by me. EKG#2 Rate: 72 Rhythm: NSR [place]: normal Normal P waves. Normal [place]. Normal QRS complex. ST T wave : normal no RENAN qTC: 418 prior studies: no acute ischemia The study has been interpreted contemporaneously by me. . Independent Historian Clinical information obtained from an independent historian. History obtained from or confirmed by: EMS External Record Review External record reviewed: Inpatient record Discharge Plan Discharge Clinical Impression: Depression, Intentional overdose Patient Disposition: Still a Patient Prescriptions: No Action albuterol sulfate 90 mcg/actuation aerosol powdr breath activated 2 inh inhalation Q4-6H PRN (Reason: shortness of breath or wheezing) Qty: 1 0RF metformin 500 mg tablet 500 mg PO BID Qty: 60 0RF loratadine 10 mg tablet 10 mg PO DAILY Interventions: Wilkin-Suicide Risk Severity Scale Last Done: 04/02/24 13:09 Print Language: Macanese
--- NOTE | 2024-04-02 11:54 | PC.NURSE ---
pt biba from home d/t intentional overdose d/t feelings of SI x yesterday. pt verbalizes ingesting approximately 15, 25mg of benadryl PO in attempts to harm herself. pt states she is unaware on if she was attempting to kill herself or not but states she has been increasingly depressed d/t life stressors at home. pt denies HI. 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 upon ED arrival - a&ox4, vss and up to date, nsr on the alarm security or surveillance monitor. pt c/o 5/10 abd pain. pt changed over by tech/belongings obtained. UA obtained/sent to lab. ekg performed by tech. pt consumed entire bottle of activated charcoal per provider order. poison control called by this RN (spoke w/ Elda). per Elda - monitor for anticholinergic effects/urinary retention/supplement magnesium/potassium as needed and to monitor for 6-8 hours. 1:1 sitter present. no sob/wob noted. respirations even and unlabored. plan of care ongoing. call matamoros placed within reach.
[2024-04-02 12:06] LABS: MANUAL DIFF FLAG NO
[2024-04-02 12:08] LABS: Basophils Percent Auto 0.4 % (0-2); Eosinophils Absolute Auto 0.1 X10*3/uL (0.0-0.4); Eosinophils Percent Auto 2.2 % (0-4); Hematocrit 38.2 % (37.0-47.0); Hemoglobin 12.6 g/dl (12.0-16.0); Imm Gran Abs Auto 0.01 X10*3/uL (0.00-0.03); Imm Gran Pct Auto 0.2 % (0.0-0.4); Lymphocytes Absolute Auto 1.5 X10*3/uL (1.2-4.9); Lymphocytes Percent Auto 31.9 % (20-40); Mean Corpuscular Hemoglobin 24.8 pg (27.0-33.0); Mean Corpuscular Volume 75.2 fL (80.0-98.0); Mean Platelet Volume 8.6 fL (9.4-12.3); Monocytes Absolute Auto 0.3 X10*3/uL (0.1-1.2); Monocytes Percent Auto 7.3 % (2-11); Neutrophils Absolute Auto 2.7 x10*3/uL (2.0-8.3); Platelet Count 312 X10*3/uL (160-400); Red Blood Count 5.08 X10*6/uL (4.20-5.50); Red Cell Distribution Width 14.2 % (11.0-16.0); White Blood Count 4.6 X10*3/uL (4.8-10.8)
[2024-04-02 12:10] LABS: Appearance Urine Clear; Color Urine Yellow; Glucose Urine UA Negative (Negative); Leukocyte Esterase Urine Negative (Negative); Nitrite Urine Negative (Negative); PH 5.5 (5.0-9.0); UMIC TRIGGER UACC YES; Urine Blood Moderate (2+) (Negative); Urine Ketones Trace mg/dL (Negative); Urine Protein 30 (1+) mg/dL (Neg-Trace)
[2024-04-02 12:18] LABS: Amphetamine Screen Urine Not Detected (Not Detect); Barbiturates, Urine Not Detected (Not Detect); Benzodiazepines Screen Urine Not Detected (Not Detect); Buprenorphine Scr Not Detected (Not Detect); Cannabinoid Screen Urine POSITIVE (Not Detect); Cocaine Screen Urine Not Detected (Not Detect); Fentanyl, urine Not Detected (Not Detect); Methadone Screen, Urine Not Detected (Not Detect); Opiate Screen Urine Not Detected (Not Detect); Oxycodone Screen Urine Not Detected (Not Detect); Phencyclidine Screen Urine Not Detected (Not Detect)
[2024-04-02 12:30] LABS: Bacteria Urine None Seen (None Seen); WBC Urine 0-5 /HPF (0-5)
[2024-04-02 12:34] LABS: Acetaminophen LAB < 3 mcg/mL (<30); Alanine Aminotransferase 16 U/L (0-31); Albumin Level 3.8 g/dL (3.5-5.0); Alkaline Phosphatase 59 U/L (39-117); Anion Gap 13 (12-20); Aspartate Amino Transferase 17 U/L (5-31); Bilirubin Direct 0.2 mg/dL (0.0-0.5); Bilirubin Total 0.5 mg/dL (0.0-1.0); Blood Urea Nitrogen 9 mg/dL (9-16); Calcium 8.5 mg/dL (8.4-10.2); Carbon Dioxide 22 mmol/L (22-29); Chloride 109 mmol/L (96-108); Creatinine Clr Calc Pharmacy 297.4; Estimated Glomerular Filt Rate > 60; Ethanol < 10 mg/dL; Glucose Random 144 mg/dL (60-115); HCG Quantitative < 2 mIU/mL; Lipase 19 U/L (8-78); Potassium 3.6 mmol/L (3.3-5.1); Salicylate < 5.0 mg/dL (15-30); Sodium 140 mmol/L (135-145); Total Protein 7.3 g/dL (6.5-8.0)
--- NOTE | 2024-04-02 12:35 | PC.NURSE ---
pt actively vomited onto herself. pt provided w/ fresh hospital attire (ligature free). respirations remain even and unlabored. 1:1 sitter remains present. call matamoros placed within reach.
--- NOTE | 2024-04-02 13:08 | PC.NURSE ---
family bedside for support. 1:1 sitter present.
--- NOTE | 2024-04-02 14:40 | PC.NURSE ---
repeat ekg obtained by tech. information given to poison control.
[2024-04-02] MEDS: Potassium Chloride Packet 20 MEQ PACKET 40 MEQ PO (14:44)
--- NOTE | 2024-04-02 14:50 | PC.NURSE ---
potassium administered per poison control protocol.
[2024-04-02 15:48] VITALS: PULSE 72; RESP 27
--- NOTE | 2024-04-02 17:29 | PC.NURSE ---
report given to ABDIFATAH Barron in the pod at this time.
--- NOTE | 2024-04-02 18:12 | MHC.EDTECH ---
Patient belongings moved from locker #9 to locker #5
--- NOTE | 2024-04-02 18:51 | MHC.EDTECH ---
Patient given dinner tray
--- NOTE | 2024-04-02 20:03 | MHC.CARE ---
Called Pt.'s grandmother Su [phone] x2 and the phone rings and then stops w/o option to leave a vm.
--- NOTE | 2024-04-02 22:11 | PC.NURSE ---
Med rec completed. PT reports that she was prescribed medications recently but never started them so no active home meds
[2024-04-03 00:53] VITALS: BP 161/85; PULSE 79; RESP 18; TEMP 36.9; O2SAT 100
--- NOTE | 2024-04-03 06:10 | PC.ADMIT ---
Pt. admitted on 04/02/24 at 23:58 from [facility]. She initially presented to the ED s/p intentional overdose of approx. 15 tabs of Benadryl 25mg at about 10:30 on 04/02/24. Pt. stated that this was an impulsive act following an argument with her grandmother, who she lives with. Pt. stated to [facility] care team clinician and to TW that she has had increasing depression over the past 2-3 weeks after her boyfriend had to move to [place] for his job. Pt. 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 She expressed concern that if she were not there to care for her grandmother that no one would care for the grandmother and she, the patient, would feel very guilty. On admission skin check was done. No open wounds cuts or bruises were found on patient's body and her hygiene appeared to be very good despite her obesity. She was A&O x 4 and was fully compliant with the admission process. On admission, she endorsed anxiety and depression but denied active suicidality and feels that her overdose was an impulsive act in response to the argument with her grandmother who she says is very mean to her. She further denied any HI, AH or VH. Following the admission pt. was oriented to the unit and to her room. She went to sleep and remained asleep for the rest of the night.
[2024-04-03 08:00] VITALS: BP 154/83; PULSE 82; RESP 16; TEMP 36.6; O2SAT 99
--- NOTE | 2024-04-03 12:14 | P.HPPS_ITS ---
HPI Date of Service: 04/03/24 Chief Complaint: depressed Sources of Information: patient interviewed, chart reviewed and crisis/core team assessment reviewed HPI Subjective Notes: Gonzalez Warning and Conditional Voluntary Narrative: Patient is a 18-year-old female, high school graduate, on a Section 12b, with limited psychiatric history who presents for intentional overdose in the face of psychosocial stressors. Patient's cousin Estefany visiting on the unit and patient wanted her to attend interview. Patient overall denies much anxiety or depression other than this past week. 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 Patient said that she feels she is getting blamed for everything this past week as her grandmother's irritable and argumentative with her. Patient said that she was sleeping and woke up to her grandmother berating her for some small and fraction. Patient said I blacked out... I did the pill thing.... I do not remember taking the pills, I just remember throwing up. My grandmother called 911. Patient reiterated she does not remember anything else about the incident. She denies any current SI or any history of SI or SA. Patient said she will never take it overdose again because being on the inpatient unit is scaring her. Patient agrees that she needs a therapist so that she can have someone to talk to but does not want to be on the unit. 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 Has somewhat of a strained relationship with her mother but says there is nothing negative, just the 2 are not emotionally close Substance History: Negative Trauma History: Alludes to some history but does not disclose Diagnostics Vital Signs (24Hr): Vital Signs - 24 hr 04/02/24 15:48 05/18/24 00:53 Temperature 98.5 F Pulse Rate 72 79 Respiratory Rate 27 H 18 Blood Pressure 161/85 H Pulse Oximetry 100 Oxygen Delivery Method Room Air BMI result Body Mass Index 61.4 Labs 04/02/24 12:00 04/02/24 12:00 Labs: Laboratory Results - last 48 hr 04/02/24 12:00 WBC 4.6 L RBC 5.08 Hgb 12.6 Hct 38.2 MCV 75.2 L MCH 24.8 L MCHC 33.0 RDW 14.2 Plt Count 312 MPV 8.6 L Immature Gran % (Auto) 0.2 Neut % (Auto) 58.0 Lymph % (Auto) 31.9 [place] % (Auto) 7.3 Eos % (Auto) 2.2 Baso % (Auto) 0.4 Lymph # (Auto) 1.5 [place] # (Auto) 0.3 Eos # (Auto) 0.1 Baso # (Auto) 0.0 Abs Immat Gran (auto) 0.01 Absolute Neuts (auto) 2.7 Absolute Nucleated RBC 0.000 Nucleated RBC % (auto) 0.0 Sodium 140 Potassium 3.6 Chloride 109 H Carbon Dioxide 22 Anion Gap 13 BUN 9 Creatinine 0.81 Estim Creat Clear Calc 297.4 Estimated GFR > 60 Random Glucose 144 H Calcium 8.5 Magnesium 2.0 Total Bilirubin 0.5 Direct Bilirubin 0.2 AST 17 ALT 16 Alkaline Phosphatase 59 Total Protein 7.3 Albumin 3.8 Lipase 19 Beta HCG, Quant < 2 Urine Color Yellow Urine Appearance Clear Urine pH 5.5 Ur Specific [place] 1.020 Urine Protein 30 (1+) H Urine Glucose (UA) Negative Urine Ketones Trace Urine Blood Moderate (2+) H Urine Nitrite Negative Ur Leukocyte Esterase Negative Urine RBC 11-20 H Urine WBC 0-5 Ur Squamous Epith Cells 3-5 Urine Bacteria None Seen Hyaline Casts 6-10 Salicylates < 5.0 L Urine Opiates Screen Not Detected Ur Buprenorphine Scrn Not Detected Ur Oxycodone Screen Not Detected Urine Methadone Screen Not Detected Urine Fentanyl Screen Not Detected Acetaminophen < 3 Ur Barbiturates Screen Not Detected Ur Phencyclidine Scrn Not Detected Ur Amphetamines Screen Not Detected U Benzodiazepines Scrn Not Detected Urine Cocaine Screen Not Detected U Marijuana (THC) Screen POSITIVE H Ethyl Alcohol < 10 Meds/Allergies Allergies Allergies Allergy/AdvReac Type Severity Reaction Status Date / Time Flu Shot Allergy Severe Unknown Uncoded 04/02/24 11:23 Mental Status Exam Mental Status Exam Narrative: Pt is alert and oriented; behavior is cooperative, calm but emotional and tearful; patient is not in distress; dressed in casual attire with unkempt hair but adequate hygiene; mood is described as okay and affect congruent, anxious; eye contact appropriate; Speech is normal rate, volume and prosody and not pressured; no psychomotor agitation/retardation present; thought process is organized and goal directed; Thought content is on on wanting discharge; otherwise pertinent to relevant topics and without any delusional content, paranoid ideations or grandiosity; denies any SI/HI. There is no evidence of perceptual disturbance. Patients insight and judgment impaired Assessment & Plan Assessment & Plan (1) Adjustment disorder with mixed disturbance of emotions and conduct: Status: Acute Code(s): F43.25 - Adjustment disorder with mixed disturbance of emotions and conduct Plan Patient is a 18-year-old female, high school graduate, on a Section 12b, with limited psychiatric history who presents for intentional overdose on Benadryl in the face of psychosocial stressors. Patient's cousin Estefany visiting on the unit and patient wanted her to attend interview. Patient overall denies much anxiety or depression other than this past week. 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 Patient said that she feels she is getting blamed for everything this past week as her grandmother's irritable and argumentative with her. Patient said that she was sleeping and woke up to her grandmother berating her for some small and fraction. Patient said I blacked out... I did the pill thing.... I do not remember taking the pills, I just remember throwing up. My grandmother called 911. Patient reiterated she does not remember anything else about the incident. She denies any current SI or any history of SI or SA. Patient said she will never take it overdose again because being on the inpatient unit is scaring her. Patient agrees that she needs a therapist so that she can have someone to talk to but does not want to be on the unit. Formulation/clinical reasoning: Patient somewhat reticent and not wanting to engage much other than to deny history of psychiatric symptoms. However care team note reports patient said she was depressed. Patient minimizing event and the fact that she got so emotionally upset that she blacked out and took an overdose. Currently patient has no outpatient support or therapist. Will monitor for the next few days. On admission she was too upset about having to stay on the unit that she was not open to discussing more of her history, symptoms or treatment. Plan: 12b Q 15 minute checks P.r.n. medication Patient educated on: diagnosis, medication risk/benefits and therapeutic strategies Informed Consent: understands and further education needed Reason for continued inpatient stay Substantial Risk for: rapid decompensation Statement Statement: I have reviewed the history and physical and performed a pertinent examination on my patient. No changes have occurred unless specified. If the History and Physical was not performed prior to admission, the Hospitalist's service will be consulted for completing the admission physical. Time Spent With Patient Time: Total time managing care of this patient today ____ minutes.
[2024-04-03 20:00] VITALS: BP 176/90; PULSE 89; RESP 20; TEMP 36.9; O2SAT 100
[2024-04-03 21:02] VITALS: BP 176/90
[2024-04-03] MEDS: cloNIDine HCL 0.1 MG TABLET PO (21:02)
[2024-04-03] MEDS: hydrOXYzine HCL 25 MG TABLET PO (21:36)
[2024-04-04 08:26] VITALS: BP 168/87; PULSE 86; RESP 16; TEMP 36.9; O2SAT 94
--- NOTE | 2024-04-04 09:31 | P.PNPSI_ITS ---
Subjective Subjective Date of Service: 04/04/24 Reason For Visit: depressed Interim History: Met with patient; discussed with team Patient opened up more today. She said she did not really want to take an overdose, she just want to sleep and make the interaction go away. Patient shared that recently her boyfriend moved to [place] though she does not think this was contributory towards her emotions; he wants her to move there with her but she has not sure. Patient talked more about her history and rarely does she get depressed and if so it only last for few hours and goes away. She does struggle with anxiety, what people think of her, worried she will not fit in, however she is able to talk herself through it and pushes herself to do things that make her anxious anyway. That said she tried hydroxyzine as a p.r.n. which he found helpful and will continue taking. She says in the past she was once tried on Prozac but it caused her to be excessively sad so it was discontinued. Patient shared about Denies any drug or alcohol use Mental Status Exam Mental Status Exam Narrative: Pt is alert and oriented; behavior is cooperative, calm but emotional and tearful; patient is not in distress; dressed in casual attire with adequate hygiene; mood is described as okay and affect congruent, anxious; eye contact appropriate; Speech is normal rate, volume and prosody and not pressured; no psychomotor agitation/retardation present; thought process is organized and goal directed; Thought content is on dealing with anxiety; wanting discharge; otherwise pertinent to relevant topics and without any delusional content, paranoid ideations or grandiosity; denies any SI/HI. There is no evidence of perceptual disturbance. Patients insight and judgment improved and fair. Diagnostics Vital Signs (24Hr): Vital Signs - 24 hr 04/03/24 20:00 04/03/24 21:02 Temperature 98.5 F Pulse Rate 89 Respiratory Rate 20 Blood Pressure 176/90 H 176/90 H Pulse Oximetry 100 Oxygen Delivery Method Room Air BMI result Body Mass Index 61.4 Labs 04/02/24 12:00 04/02/24 12:00 Labs: Laboratory Results - last 48 hr 04/02/24 12:00 WBC 4.6 L RBC 5.08 Hgb 12.6 Hct 38.2 MCV 75.2 L MCH 24.8 L MCHC 33.0 RDW 14.2 Plt Count 312 MPV 8.6 L Immature Gran % (Auto) 0.2 Neut % (Auto) 58.0 Lymph % (Auto) 31.9 [place] % (Auto) 7.3 Eos % (Auto) 2.2 Baso % (Auto) 0.4 Lymph # (Auto) 1.5 [place] # (Auto) 0.3 Eos # (Auto) 0.1 Baso # (Auto) 0.0 Abs Immat Gran (auto) 0.01 Absolute Neuts (auto) 2.7 Absolute Nucleated RBC 0.000 Nucleated RBC % (auto) 0.0 Sodium 140 Potassium 3.6 Chloride 109 H Carbon Dioxide 22 Anion Gap 13 BUN 9 Creatinine 0.81 Estim Creat Clear Calc 297.4 Estimated GFR > 60 Random Glucose 144 H Calcium 8.5 Magnesium 2.0 Total Bilirubin 0.5 Direct Bilirubin 0.2 AST 17 ALT 16 Alkaline Phosphatase 59 Total Protein 7.3 Albumin 3.8 Lipase 19 Beta HCG, Quant < 2 Urine Color Yellow Urine Appearance Clear Urine pH 5.5 Ur Specific [place] 1.020 Urine Protein 30 (1+) H Urine Glucose (UA) Negative Urine Ketones Trace Urine Blood Moderate (2+) H Urine Nitrite Negative Ur Leukocyte Esterase Negative Urine RBC 11-20 H Urine WBC 0-5 Ur Squamous Epith Cells 3-5 Urine Bacteria None Seen Hyaline Casts 6-10 Salicylates < 5.0 L Urine Opiates Screen Not Detected Ur Buprenorphine Scrn Not Detected Ur Oxycodone Screen Not Detected Urine Methadone Screen Not Detected Urine Fentanyl Screen Not Detected Acetaminophen < 3 Ur Barbiturates Screen Not Detected Ur Phencyclidine Scrn Not Detected Ur Amphetamines Screen Not Detected U Benzodiazepines Scrn Not Detected Urine Cocaine Screen Not Detected U Marijuana (THC) Screen POSITIVE H Ethyl Alcohol < 10 Medications Medications Current Medications Acetaminophen (Acetaminophen 325 Mg Tablet) 650 mg PO Q6H PRN PRN Reason: Headache/Pain Mild Scale (1-3) Al Hydroxide/Mg Hydroxide (Magnesium Hydrox/Alum Hydrox 30 Ml Oral.Susp) 30 ml PO Q6H PRN PRN Reason: Heartburn/Nausea Albuterol Sulfate (Albuterol Sulfate 90 Mcg 8 Gm Inhaler) 2 puff INHALE RQ4H PRN PRN Reason: Shortness of Breath Clonidine HCl (Clonidine Hcl 0.1 Mg Tablet) 0.1 mg PO Q4H PRN; Protocol PRN Reason: moderate anxiety Last Admin: 04/03/24 21:02 Dose: 0.1 mg Hydroxyzine HCl (Hydroxyzine Hcl 25 Mg Tablet) 25 mg PO Q6H PRN PRN Reason: Anxiety Last Admin: 04/03/24 21:36 Dose: 25 mg Magnesium Hydroxide (Milk Of Magnesia 30 Ml Oral.Susp) 30 ml PO DAILY PRN PRN Reason: Constipation Nicotine (Nicotine 21 Mg Patch.Td24) 21 mg TRANSDERMA DAILY PRN PRN Reason: smoking cessation Nicotine Polacrilex (Nicotine Polacrilex 2 Mg Gum) 4 mg BUCCAL Q2H PRN PRN Reason: Nicotine Cravings Olanzapine (Olanzapine 5 Mg Tablet) 5 mg PO TID PRN PRN Reason: agitation Trazodone HCl (Trazodone Hcl 50 Mg Tablet) 50 mg PO BEDTIME MRX1 PRN PRN Reason: Insomnia Allergies Allergies Allergy/AdvReac Type Severity Reaction Status Date / Time Flu Shot Allergy Severe Unknown Uncoded 04/02/24 11:23 Assessment & Plan Assessment & Plan (1) Adjustment disorder with mixed disturbance of emotions and conduct: Status: Acute Code(s): F43.25 - Adjustment disorder with mixed disturbance of emotions and conduct Plan Patient is a 18-year-old female, high school graduate, on a Section 12b, with limited psychiatric history who presents for intentional overdose on Benadryl in the face of psychosocial stressors. Patient's cousin Estefany visiting on the unit and patient wanted her to attend interview. Patient overall denies much anxiety or depression other than this past week. 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 Patient said that she feels she is getting blamed for everything this past week as her grandmother's irritable and argumentative with her. Patient said that she was sleeping and woke up to her grandmother berating her for some small and fraction. Patient said I blacked out... I did the pill thing.... I do not remember taking the pills, I just remember throwing up. My grandmother called 911. Patient reiterated she does not remember anything else about the incident. She denies any current SI or any history of SI or SA. Patient said she will never take it overdose again because being on the inpatient unit is scaring her. Patient agrees that she needs a therapist so that she can have someone to talk to but does not want to be on the unit. Formulation/clinical reasoning: Patient somewhat reticent and not wanting to engage much other than to deny history of psychiatric symptoms. However care team note reports patient said she was depressed. Patient minimizing event and the fact that she got so emotionally upset that she blacked out and took an overdose. Currently patient has no outpatient support or therapist. Will monitor for the next few days. On admission she was too upset about having to stay on the unit that she was not open to discussing more of her history, symptoms or treatment. Hospital course: 04/04 patient calm on the unit; intermittently tearful and anxious but coping through it. Explains that she did not really want to and that overdose was not a suicidal act; rather she was feeling very upset that grandmother was yelling at her and just wanted to sleep and have the interaction go away. Discussed medication options and patient likes the p.r.n. route for helping with intermittent anxiety -discussed hypertension. Patient says she had the same talk with her PCP and that she will only gets elevated blood pressure when she is at a doctor's office or at a hospital; she says she takes it at home and it is always within normal. At this time she does not want medication for Plan: 12b Q 15 minute checks Continue hydroxyzine 25 mg p.r.n. for anxiety P.r.n. medication Patient educated on: diagnosis, medication risk/benefits, substance abuse, therapeutic strategies and medical condition Informed Consent: understands Reason for continued inpatient stay Substantial Risk for: stable for discharge and rapid decompensation Time Spent With Patient Time: Total time managing care of this patient today ____ minutes.
[2024-04-04 20:00] VITALS: BP 144/46; PULSE 86; RESP 16; TEMP 37; O2SAT 99
[2024-04-04] MEDS: hydrOXYzine HCL 25 MG TABLET PO (22:47)
[2024-04-04] MEDS: traZODone HCL 50 MG TABLET PO (22:47)
[2024-04-04] MEDS: Acetaminophen 325 MG TABLET 650 MG PO (23:12)
[2024-04-05 00:11] VITALS: BP 146/98
[2024-04-05] MEDS: cloNIDine HCL 0.1 MG TABLET PO ×2 (00:11→21:58)
[2024-04-05 08:06] VITALS: BP 150/95; PULSE 90; RESP 16; TEMP 36.8; O2SAT 100
[2024-04-05 09:14] VITALS: BP 142/65; PULSE 80; RESP 16; TEMP 36.6; O2SAT 100
--- NOTE | 2024-04-05 09:45 | P.PNPSI_ITS ---
Subjective Subjective Date of Service: 04/05/24 Reason For Visit: depressed Interim History: met with patient; discussed with team pt says she's good' and has a noticeably brighter affect; also in [place], socializing and says she's pushing herself to overcome her anxiety and be social, which she says is going well. Pt said today is first day she's not felt anxious, the first day she can breath... on the unit. Pt shared more her struggles with anxiety, relationships; shared about past experiences, her mother left her with grandma when she was 8...and how she really wants a therapist. Reports that both clonidine and hydroxyzine have been helpful for anxiety; will decide about what she finds is most effective. Mental Status Exam Mental Status Exam Narrative: Pt is alert and oriented; behavior is cooperative, calm but emotional and tearful; patient is not in distress; dressed in casual attire with adequate hygiene; mood is described as good and affect congruent, anxious; eye contact appropriate; Speech is normal rate, volume and prosody and not pressured; no psychomotor agitation/retardation present; thought process is organized and goal directed; Thought content is on dealing with anxiety; wanting discharge; otherwise pertinent to relevant topics and without any delusional content, paranoid ideations or grandiosity; denies any SI/HI. There is no evidence of perceptual disturbance. Patients insight and judgment improved and fair. Diagnostics Vital Signs (24Hr): Vital Signs - 24 hr 04/04/24 20:00 04/05/24 00:11 04/05/24 08:06 Temperature 98.6 F 98.2 F Pulse Rate 86 90 Respiratory Rate 16 16 Blood Pressure 144/46 H 146/98 H 150/95 H Pulse Oximetry 99 100 Oxygen Delivery Method Room Air Room Air BMI result Body Mass Index 61.4 Labs 04/02/24 12:00 04/02/24 12:00 Medications Medications Current Medications Acetaminophen (Acetaminophen 325 Mg Tablet) 650 mg PO Q6H PRN PRN Reason: Headache/Pain Mild Scale (1-3) Last Admin: 04/04/24 23:12 Dose: 650 mg Al Hydroxide/Mg Hydroxide (Magnesium Hydrox/Alum Hydrox 30 Ml Oral.Susp) 30 ml PO Q6H PRN PRN Reason: Heartburn/Nausea Albuterol Sulfate (Albuterol Sulfate 90 Mcg 8 Gm Inhaler) 2 puff INHALE RQ4H PRN PRN Reason: Shortness of Breath Clonidine HCl (Clonidine Hcl 0.1 Mg Tablet) 0.1 mg PO Q4H PRN; Protocol PRN Reason: moderate anxiety Last Admin: 04/05/24 00:11 Dose: 0.1 mg Hydroxyzine HCl (Hydroxyzine Hcl 25 Mg Tablet) 25 mg PO Q6H PRN PRN Reason: Anxiety Last Admin: 04/04/24 22:47 Dose: 25 mg Magnesium Hydroxide (Milk Of Magnesia 30 Ml Oral.Susp) 30 ml PO DAILY PRN PRN Reason: Constipation Nicotine (Nicotine 21 Mg Patch.Td24) 21 mg TRANSDERMA DAILY PRN PRN Reason: smoking cessation Nicotine Polacrilex (Nicotine Polacrilex 2 Mg Gum) 4 mg BUCCAL Q2H PRN PRN Reason: Nicotine Cravings Olanzapine (Olanzapine 5 Mg Tablet) 5 mg PO TID PRN PRN Reason: agitation Trazodone HCl (Trazodone Hcl 50 Mg Tablet) 50 mg PO BEDTIME MRX1 PRN PRN Reason: Insomnia Last Admin: 04/04/24 22:47 Dose: 50 mg Allergies Allergies Allergy/AdvReac Type Severity Reaction Status Date / Time Flu Shot Allergy Severe Unknown Uncoded 04/02/24 11:23 Assessment & Plan Assessment & Plan (1) Adjustment disorder with mixed disturbance of emotions and conduct: Status: Acute Code(s): F43.25 - Adjustment disorder with mixed disturbance of emotions and conduct Plan Patient is a 18-year-old female, high school graduate, on a Section 12b, with limited psychiatric history who presents for intentional overdose on Benadryl in the face of psychosocial stressors. Patient's cousin Estefany visiting on the unit and patient wanted her to attend interview. Patient overall denies much anxiety or depression other than this past week. 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 Patient said that she feels she is getting blamed for everything this past week as her grandmother's irritable and argumentative with her. Patient said that she was sleeping and woke up to her grandmother berating her for some small and fraction. Patient said I blacked out... I did the pill thing.... I do not remember taking the pills, I just remember throwing up. My grandmother called 911. Patient reiterated she does not remember anything else about the incident. She denies any current SI or any history of SI or SA. Patient said she will never take it overdose again because being on the inpatient unit is scaring her. Patient agrees that she needs a therapist so that she can have someone to talk to but does not want to be on the unit. Formulation/clinical reasoning: Patient somewhat reticent and not wanting to engage much other than to deny history of psychiatric symptoms. However care team note reports patient said she was depressed. Patient minimizing event and the fact that she got so emotionally upset that she blacked out and took an overdose. Currently patient has no outpatient support or therapist. Will monitor for the next few days. On admission she was too upset about having to stay on the unit that she was not open to discussing more of her history, symptoms or treatment. Hospital course: 04/04 patient calm on the unit; intermittently tearful and anxious but coping through it. Explains that she did not really want to and that overdose was not a suicidal act; rather she was feeling very upset that grandmother was yelling at her and just wanted to sleep and have the interaction go away. Discussed medication options and patient likes the p.r.n. route for helping with intermittent anxiety -discussed hypertension. Patient says she had the same talk with her PCP and that she will only gets elevated blood pressure when she is at a doctor's office or at a hospital; she says she takes it at home and it is always within normal. At this time she does not want medication for 04/05 patient doing well, stable, no SI; she is, with much improved insight and addressing her chronic struggles in a mature way. 72 hours is coming due. Patient did not want to remain on the unit but wants to continue treatment as an outpatient with therapy. Need to set up aftercare but otherwise Patient is not in imminent risk for harm to self or others and will honor her request for discharge Plan: 12b Q 15 minute checks Continue hydroxyzine 25 mg p.r.n. for anxiety P.r.n. medication Patient educated on: diagnosis, medication risk/benefits and therapeutic strategies Informed Consent: understands Reason for continued inpatient stay Substantial Risk for: stable for discharge Time Spent With Patient Time: Total time managing care of this patient today ____ minutes.
[2024-04-05] MEDS: Acetaminophen 325 MG TABLET 650 MG PO (11:49)
[2024-04-05 20:00] VITALS: BP 144/73; PULSE 86; RESP 16; TEMP 36.8; O2SAT 100
[2024-04-05] MEDS: hydrOXYzine HCL 25 MG TABLET PO (21:58)
[2024-04-05] MEDS: traZODone HCL 50 MG TABLET PO (21:58)
[2024-04-06 08:00] VITALS: PULSE 83; RESP 16; TEMP 36.2; O2SAT 100
[2024-04-06] MEDS: hydrOXYzine HCL 25 MG TABLET PO (08:42)
[2024-04-06] MEDS: Acetaminophen 325 MG TABLET 650 MG PO (08:42)
--- NOTE | 2024-04-06 09:44 | P.DS_ITS ---
DS: Providers Provider Date of Service: 04/06/24 Date of admission: 04/02/24 22:04 Date of discharge: 04/06/24 Primary care physician: Felisa Osman MD Attending physician on admission: Fidencio Fox Attending physician on discharge: Fidencio Fox DS: Diagnosis Discharge Diagnosis (1) Adjustment disorder with mixed disturbance of emotions and conduct: Status: Acute Mental Status Exam Mental Status Exam Narrative: Pt is alert and oriented; behavior is cooperative, calm, friendly; patient is not in distress; dressed in casual attire with adequate hygiene; mood is described as good and affect congruent, bright, calm; eye contact appropriate; Speech is normal rate, volume and prosody and not pressured; no psychomotor agitation/retardation present; thought process is organized and goal directed; Thought content is on dealing with anxiety; looking forward to discharge; otherwise pertinent to relevant topics and without any delusional content, paranoid ideations or grandiosity; denies any SI/HI. There is no evidence of perceptual disturbance. Patients insight and judgment fair and adequate. Data Data Completed and Pending Completed studies during hospitalization [Text1]: 04/02/24 12:00 WBC 4.6 L RBC 5.08 Hgb 12.6 Hct 38.2 MCV 75.2 L MCH 24.8 L MCHC 33.0 RDW 14.2 Plt Count 312 MPV 8.6 L Immature Gran % (Auto) 0.2 Neut % (Auto) 58.0 Lymph % (Auto) 31.9 [place] % (Auto) 7.3 Eos % (Auto) 2.2 Baso % (Auto) 0.4 Lymph # (Auto) 1.5 [place] # (Auto) 0.3 Eos # (Auto) 0.1 Baso # (Auto) 0.0 Abs Immat Gran (auto) 0.01 Absolute Neuts (auto) 2.7 Absolute Nucleated RBC 0.000 Nucleated RBC % (auto) 0.0 Sodium 140 Potassium 3.6 Chloride 109 H Carbon Dioxide 22 Anion Gap 13 BUN 9 Creatinine 0.81 Estim Creat Clear Calc 297.4 Estimated GFR > 60 Random Glucose 144 H Calcium 8.5 Magnesium 2.0 Total Bilirubin 0.5 Direct Bilirubin 0.2 AST 17 ALT 16 Alkaline Phosphatase 59 Total Protein 7.3 Albumin 3.8 Lipase 19 Beta HCG, Quant < 2 Urine Color Yellow Urine Appearance Clear Urine pH 5.5 Ur Specific [place] 1.020 Urine Protein 30 (1+) H Urine Glucose (UA) Negative Urine Ketones Trace Urine Blood Moderate (2+) H Urine Nitrite Negative Ur Leukocyte Esterase Negative Urine RBC 11-20 H Urine WBC 0-5 Ur Squamous Epith Cells 3-5 Urine Bacteria None Seen Hyaline Casts 6-10 Salicylates < 5.0 L Urine Opiates Screen Not Detected Ur Buprenorphine Scrn Not Detected Ur Oxycodone Screen Not Detected Urine Methadone Screen Not Detected Urine Fentanyl Screen Not Detected Acetaminophen < 3 Ur Barbiturates Screen Not Detected Ur Phencyclidine Scrn Not Detected Ur Amphetamines Screen Not Detected U Benzodiazepines Scrn Not Detected Urine Cocaine Screen Not Detected U Marijuana (THC) Screen POSITIVE H Ethyl Alcohol < 10 DS: Summary Hospital Course Hospital Course: Patient is a 18-year-old female, high school graduate, on a Section 12b, with limited psychiatric history who presents for intentional overdose on Benadryl in the face of psychosocial stressors. Patient's cousin Estefany visiting on the unit and patient wanted her to attend interview. Patient overall denies much anxiety or depression other than this past week. 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 Patient said that she feels she is getting blamed for everything this past week as her grandmother's irritable and argumentative with her. Patient said that she was sleeping and woke up to her grandmother berating her for some small and fraction. Patient said I blacked out... I did the pill thing.... I do not remember taking the pills, I just remember throwing up. My grandmother called 911. Patient reiterated she does not remember anything else about the incident. She denies any current SI or any history of SI or SA. Patient said she will never take it overdose again because being on the inpatient unit is scaring her. Patient agrees that she needs a therapist so that she can have someone to talk to but does not want to be on the unit. Hospital course: Admission, patient emotional, upset that she is admitted and remained on a Section 12b. She denied history of depression but does say she gets anxious and worries what other people think. Patient initially too upset about the ad mission to discuss much however she soon calmed down and remained cooperative, friendly, calm and in good behavioral and impulse control thus forward. Patient explained that this was not a suicide attempt. Rather her feelings were hurt and in an emotional response, took Benadryl which makes her sleepy, in an effort to go back to sleep and avoid this confrontation with her grandmother. She consistently denied any history of SI or SA at all. Patient shared her relationship with her grandmother whom she loves, but agrees that she has been parentified for too many years. Patient shared more about her struggles with anxiety that mostly she is able to overcome them on her own but often worries that she will not fit in and so mostly sticks to her specific friend group. Patient tried both hydroxyzine and clonidine on the unit and found them helpful; she decided to challenge herself and attended groups and socialize in the milieu, finding people friendly and enjoy herself. Discussed hypertension which patient says she is discussed with her PCP and is only ever elevated when she is around doctors or nurses (she did not want treatment for this). Patient remained in good behavioral control, with bright affect and addressing her chronic struggles in a mature way. Patient asked for help getting a therapist which she has been meaning to do for some time. Her 72 hours were coming due and she was eager to get back home and prepare for high school graduation. Patient is not in imminent risk for harm to self or others and her request for discharge honored. Time spent discussing smoking cessation with patient: 3 to 10 minutes Status at Discharge Functional status at discharge: independent ambulation Overall status at discharge: patient is back to baseline Time Spent with Patient Time attestation: Total time managing care of this patient today __40__ minutes. Time spent: Greater than 30 minutes Discharge Plan Discharge Anticipated Discharge Date/Time: 04/06/24 11:00 Patient Disposition: Home, Self-Care Discharge Diagnosis: Adjustment disorder, with mixed disturbance of emotion/behavior, in full remission Referrals: Felisa Osman MD [Primary Care Provider] - 04/29/24 1:30 pm (in office) Discharge Medications: New albuterol sulfate [Ventolin HFA] 90 mcg/actuation Hfa Aerosol Inhaler 2 puff inhalation RQ4H PRN (Reason: Shortness Of Breath) 30 Days Qty: 6.7 1RF clonidine HCl 0.1 mg Tablet 0.1 mg PO Q4H PRN (Reason: moderate anxiety) 30 Days Qty: 60 1RF Protocol: Hold for SBP< HOLD for SBP < : 90 hydroxyzine HCl 25 mg Tablet 25 mg PO Q6H PRN (Reason: Anxiety) 30 Days Qty: 60 1RF trazodone 50 mg Tablet 50 mg PO BEDTIME PRN (Reason: Insomnia) 30 Days Qty: 30 1RF Discharge Orders: Discharge Order (Routine); Ordered 04/06/24 Ordered By: Fidencio Fox Diet: Regular diet Activity on Discharge: As tolerated Stand Alone Forms: Patient Portal Discharge page, Community Support Print Language: Senegalese Care Plan Goals: Maintain mood and safe behaviors Take medications as prescribed Practice coping skills Continue with outpatient providers and reach out to them as needed Health Concerns: Mood stability and behaviors question of Hypertension Plan of Treatment: Follow up with your PCP, psychiatric provider and other outpatient providers regarding above concerns Take medications as prescribed Assessment: Risk assessment at time of discharge:? Patient was interviewed prior to discharge and found to be fully oriented and without any SI or HI. Patient has improved insight and judgment and wants to continue treatment. Patient is not in imminent risk of harm to self or others and has a safety plan that includes presenting to the closest ER or calling 911 if feeling unsafe.? Patient has been observed closely by nursing and unit staff throughout admission; patient has not engaged in any behaviors that suggest dangerousness to self or others and has demonstrated appropriate behaviors and impulse control
[2024-04-06 10:13] VITALS: BP 174/81
[2024-04-06] MEDS: cloNIDine HCL 0.1 MG TABLET PO (10:13)
[2024-04-06 11:07] VITALS: BP 168/83; PULSE 81
== END 2024-04-06 11:15 | disposition home or self-care (01) | DRG 755 ==
LOC: HO.ED 17:50 → HO.PM5 22:20
PROVIDERS: Admitting Provider Psychiatry & Neurology Psychiatry; Emergency Provider Emergency Medicine; PCP Family Medicine; Visit Provider Psychiatry & Neurology Psychiatry
DX: F43.25 Adjustment disorder with mixed disturbance of emotions and conduct (principal); Z68.44 Body mass index [BMI] 60.0-69.9, adult; E66.01 Morbid (severe) obesity due to excess calories; T45.0X2A Poisoning by antiallergic and antiemetic drugs, intentional self-harm, initial encounter; Z79.899 Other long term (current) drug therapy
CPT/HCPCS: 36415; 80048; 80076; 80143; 80179; 80307; 81001; 83690; 83735; 84702; 85025; 93005; 99285; S9485

== ENCOUNTER → 2024-04-02 11:26 | Outpatient (BNV) | payer MEDICAID, SELFPAY | PROVIDERS: Emergency Provider Emergency Medicine; PCP Family Medicine; Visit Provider Internal Medicine Cardiovascular Disease | DX: T45.0X1A Poisoning by antiallergic and antiemetic drugs, accidental (unintentional), initial encounter (principal) | CPT/HCPCS: 93010 ==

== ENCOUNTER → 2024-04-02 22:04 | Outpatient (BNV) | payer OTHER, SELFPAY | PROVIDERS: Admitting Provider Psychiatry & Neurology Psychiatry; Emergency Provider Emergency Medicine; PCP Family Medicine; Visit Provider Psychiatry & Neurology Psychiatry | DX: F43.25 Adjustment disorder with mixed disturbance of emotions and conduct (principal) | CPT/HCPCS: 99232 ==

== ENCOUNTER 2024-12-23 00:20 | Emergency (ER) | payer MEDICAID, SELFPAY ==
--- NOTE | ~2024-12-23 | XR_ITS ---
CLINICAL HISTORY: cough and sob 2 view chest x-ray Comparison: Chest x-ray from 10/31/2022 Findings: Low lung volumes with minimal atelectasis. No consolidation, pneumothorax, or pleural effusion. Imaged mediastinum and imaged osseous structures appear unchanged. IMPRESSION: Mild low lung volumes without consolidation. This document has been electronically signed by: Fidencio Bergman MD on 12/23/2024 01:00:51
[2024-12-23 00:25] VITALS: BP 152/67; PULSE 75; RESP 20; TEMP 36.8; O2SAT 97; BMI 53.9
--- NOTE | 2024-12-23 00:43 | ED.URI ---
HPI - URI/Sore Throat General Chief Complaint: Upper Respiratory Symptoms Stated Complaint: Coughing Time Seen by Provider: 12/23/24 00:39 Source: patient Mode of arrival: ambulatory Limitations: no limitations History of Present Illness ED Provider: KATELIN MERCER Narrative: 19 yo female with PMH of asthma reports a cough with yellow sputum for 2 weeks that will not go away. No travel, fevers, sick contacts. Might have had some chills. She takes her rescue inhaler with little relief. She has no CP. She has not been on prednisone in months MD elicited complaint: cough Pertinent past history: asthma Onset (ago): week(s) (2) Consistency: progressively worsening Severity: mild Description of mucous: yellow Able to tolerate fluids by mouth: Yes Exacerbating factors: other (coughing) Relieving factors: nothing Associated symptoms: nasal congestion, cough and shortness of breath Treatments prior to arrival: other Related Data Previous Rx's ?Medication ?Instructions ?Recorded albuterol sulfate 90 mcg/actuation 2 puff inhalation RQ4H PRN 04/06/24 aerosol inhaler (Ventolin HFA) Shortness Of Breath 30 days #6.7 grams clonidine HCl 0.1 mg tablet 0.1 mg PO Q4H PRN moderate anxiety 04/06/24 30 days #60 tabs hydroxyzine HCl 25 mg tablet 25 mg PO Q6H PRN Anxiety 30 days 04/06/24 #60 tabs trazodone 50 mg tablet 50 mg PO BEDTIME PRN Insomnia 30 04/06/24 days #30 tabs azithromycin 250 mg tablet See Rx Instructions PO .COMPLEX #6 12/23/24 tabs prednisone 20 mg tablet 40 mg (2 x 20 mg) PO DAILY 4 days 12/23/24 #8 tabs Allergies Allergy/AdvReac Type Severity Reaction Status Date / Time Flu Shot Allergy Severe Unknown Uncoded 12/23/24 00:27 Review of Systems Review of Systems: Constitutional : No Fever, No Chills ENT/Mouth : No Hoarseness, No sore throat, No Rhinorrhea Eyes: No Redness, No Discharge, No Vision Changes Cardiovascular : No Chest Pain, positive SOB, positive Dyspnea on Exertion, No Edema Respiratory : positive Cough, pos Sputum, positive Wheezing, Gastrointestinal : No Nausea, No Vomiting, No Diarrhea, No abdominal Pain Genitourinary : No Dysuria, No Hematuria Musculoskeletal : No joint pain, No Myalgias Skin : No rash Neuro : No Weakness, No Numbness, No Headache Psych : No anxiety, depression All other systems reviewed and are negative [facility] Past Medical History Attestation statement: The following information was validated with the patient. Source: old records reviewed Medical History Morbid obesity Nexplanon in place Surgical History Nexplanon removal (~08/20/23) Family History Family History Other Throat cancer Social History Social History Household Members: Family Housing: Apartment Do you presently have visiting nurse or other home services: No Alcohol intake: never Patient Tobacco Use Status: Never used Tobacco e-Cigarette/Vaping Use: Never Used Second Hand Smoke Exposure: No Substance Use Type: Marijuana service: No Sexual orientation: Straight/Heterosexual Physical Exam Vital Signs: Vital Signs: Last Vital Signs Temp 98.2 F 12/23/24 00:25 Pulse 75 12/23/24 00:25 Resp 20 12/23/24 00:25 BP 152/67 H 12/23/24 00:25 Pulse Ox 97 12/23/24 00:25 O2 Del Method Room Air 12/23/24 00:25 BMI result Body Mass Index 53.9 Appearance: Alert. Oriented X3. No acute distress. Eyes: Pupils equal, round and reactive to light. ENT: Pharynx normal. Neck: Normal inspection. Neck supple. CVS: Normal heart rate and rhythm. Pulses normal. Respiratory: No respiratory distress. Breath sounds mild diffuse exp wheezes not labored Abdomen: Soft and non-tender. Skin: Skin warm and dry. Normal skin color. Normal skin turgor. Extremities: No lower extremity edema. No calf ttp Neuro: Oriented X 3. No motor deficit. No sensory deficit. CN2-12 intact Medical Decision Making Medical Decision Making MDM Narrative: 19 yo female with PMH of asthma not a smoker here with cough, congestion, wheezing and sputum production for 2 weeks she is not labored at this time will treat as likely bronchitis - obtain CXR, viral panel, start on prednisone and given asthma with prolonged course start on zpak. Differential Diagnosis Differential Diagnoses: The differential diagnosis associated with the presentation includes not toxic, not labored at this time stable for DC not hypoxia Admission/Observation Consideration of admission/observation: Escalation of care including admission/observation considered not toxic, no resp distress can be managed as outpatient Lab Data MDM Lab Attestation statement: I reviewed the patient's lab results. Independent Interpretation I performed an independent interpretation of an: Plain X-Ray (no pneumonia) Radiology Impression Discussion of test interpretation with radiology: I have reviewed the radiologist's reading. Independent Historian Clinical information obtained from an independent historian. History obtained from or confirmed by: Parent External Record Review External record reviewed: Outpatient record Prescription Management I considered prescription management with: Antibiotic and Other Discharge Plan Discharge Clinical Impression: Acute bronchitis with asthma Patient Disposition: Home, Self-Care Instructions: Asthma (ED), Acute Bronchitis (ED) Additional Instructions: chest xray negative continue to take your albuterol inhaler return for any worsening symptoms or concerns. rest and stay hydrated Prescriptions: New azithromycin 250 mg tablet See Rx Instructions .ROUTE .COMPLEX Qty: 6 0RF Rx Instructions: For 250 mg dose pack: take 500 mg today (day 1), then 250 mg for 4 days (days 2-5) prednisone 20 mg tablet 40 mg PO DAILY 4 Days Qty: 8 0RF No Action albuterol sulfate [Ventolin HFA] 90 mcg/actuation Hfa Aerosol Inhaler 2 puff inhalation RQ4H PRN (Reason: Shortness Of Breath) 30 Days Qty: 6.7 1RF clonidine HCl 0.1 mg Tablet 0.1 mg PO Q4H PRN (Reason: moderate anxiety) 30 Days Qty: 60 1RF Protocol: Hold for SBP< HOLD for SBP < : 90 hydroxyzine HCl 25 mg Tablet 25 mg PO Q6H PRN (Reason: Anxiety) 30 Days Qty: 60 1RF trazodone 50 mg Tablet 50 mg PO BEDTIME PRN (Reason: Insomnia) 30 Days Qty: 30 1RF Stand Alone Forms: Work/School Release Print Language: Polish
[2024-12-23] MEDS: Albuterol/Iprat 2.5/0.5MG 3 ML AMPUL.NEB INHALE (00:50)
[2024-12-23] MEDS: predniSONE 20 MG TABLET 40 MG PO (00:51)
--- OUTSIDE RECORDS SUMMARY | 2024-12-23 00:52 | XMS_ITS | Clinical Summary ---
Author Organization [employer] Address [address] [place] [address] Care Team Providers Care Manufacturing Advisor Name Role Phone Felisa Osman MD Primary Care Provider [phone] Allergies Active Allergy Reactions Criticality Noted Date Comments Influenza Vaccines 06/22/2020 Medications * This document contains information received from the source organization and may not represent a complete record from that organization. albuterol (ProAir HFA) 108 (90 Base) MCG/ACT inhaler Use 2 puffs every 4 hours as needed for diffciulty breathing. Maximum 8 puffs per day 1 Active venlafaxine XR (Effexor XR) 37.5 MG 24 hr capsule Take 1 capsule by mouth in the morning. 1 Active acetaminophen (Tylenol 8 Hour) 650 MG ER tablet Take 650 mg by mouth every 6 (six) hours if needed. 2 Active baclofen (Lioresal) 10 MG tablet TAKE 1 TABLET BY MOUTH THREE TIMES DAILY NEEDED FOR MUSCLE SPASMS OR PAIN 2 Active Diclofenac Sodium 1 % gel APPLY TO THE AFFECTED AREA(S) 2 GRAMS TWICE DAILY NEEDED FOR PAIN 2 Active omeprazole (PriLOSEC) [address] capsule TAKE 1 CAPSULE BY MOUTH EVERY DAY BEFORE A MEAL 2 Active albuterol (2.5 MG/3ML) 0.083% nebulizer solution USE 1 AMPULE USING A NEBULIZER EVERY 4 HOURS NEEDED FOR DIFFICULTY BREATHING 90 mL 1 3 Active Blood Glucose Monitoring Suppl (WisairStyle Lite) w/Device kitIndications: Type 2 diabetes mellitus without complication, without long-term current use of insulin (CMS/HCC) 1 each in the morning. 1 kit 1 4 Active FreeStyle lancetsIndicati ons:Type 2 diabetes mellitus without complication, without long-term current use of insulin (CMS/HCC) 1 each by Other route Once daily. Check blood glucose every morning and 2 hours after your biggest meal of the day. 100 each 11 4 Active FREESTYLE LITE test stripIndication s:Type 2 diabetes mellitus without complication, without long-term current use of insulin (CMS/HCC) Check blood glucose twice daily 100 each 4 Active Alcohol Swabs (Alcohol Prep) padsIndications :Type 2 diabetes mellitus without complication, without long-term current use of insulin (CMS/HCC) Check BG once daily 100 each 4 Active metFORMIN XR (Glucophage-XR) 500 MG 24 hr tabletIndicatio ns:Type 2 diabetes mellitus without complication, without long-term current use of insulin (CMS/HCC) Take 1 tablet (500 mg) by mouth before breakfast and before evening meal. Do not crush, chew, or split. 60 tablet 2 4 03/19/20 25 Active norethindrone (Micronor) 0.35 MG tablet Take 1 tablet (0.35 mg) by mouth Once per day. 28 tablet 5 4 03/19/20 25 Active fluticasone (Flonase) 50 MCG/ACT nasal spray Administer 1-2 sprays into each nostril Once per day. Shake gently. Before first use, prime pump. After use, clean tip and replace cap. 16 g 2 4 04/22/20 25 Active cloNIDine (Catapres) 0.1 MG tablet TAKE 1 TABLET BY MOUTH EVERY 4 HOURS NEEDED FOR MODERATE ANXIETY 4 Active hydrOXYzine HCl (Atarax) 25 MG tablet Take 25 mg by mouth every 6 (six) hours if needed for anxiety. 4 Active traZODone (Desyrel) 50 MG tablet Take 50 mg by mouth if needed at bedtime for sleep. 4 Active Active Problems Problem Noted Date Diagnosed Date Persistent depressive disorder 03/19/2024 Assessment & Plan (03/24/2024 10:53 AM EDT): During IBH Consult Keyona presenting with depressed mood, loss of interests/pleasure , changes in sleep difficulty falling asleep, change in appetite or weight overeating, psychomotor retardation, trouble concentrating, thoughts of worthlessness or guilt, fatigue/loss of energy, inappropriate guilt , hopelessness, worthlessness , difficulty concentrating, low self-esteem; for a period of 24+ mo, for all symptoms in the context of illness or family illness, relationship issues, and school. Severe symptoms have been continuously present and have been worsening within the last months. Keyona takes care of her grandma who is showing a decline in her medical health. Keyona has been also struggling with school and cannot perform at her best per patient's report. PLAN: (check all that apply) New/Additional Services needed Off-site services for ,. Referral for MH services will be placed according to patient's preferences. 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 Asthma 10/28/2022 Assessment & Plan (03/19/2024 5:35 PM EDT): States using albuterol rarely ,well controlled Diabetes mellitus, type 2 10/28/2022 Assessment & Plan (03/19/2024 5:36 PM EDT): -hb1AC 6.9<---- 8.3 , CBG today is 165 -start metformin 500 mg daily for 5 days and then BID -will benefit from GLP1 to discuss w PCP at her upcoming apt -DM labs -referred today to proposal editor -will need foot exam at next visit Elevated blood-pressure read ing without diagnosis of hypertension 09/19/2016 Overview (10/28/2022): 11-16 serial readings in school f/u 1m Last Assessment & Plan: 11-16 serial readings in school f/u 1m Assessment & Plan (03/19/2024 5:35 PM EDT): Rechecked BP manually 142/80 -Pt has BP machine at home and will bring home BP readings at next apt to f w PCP Anxiety and depression 04/22/2016 Overview (10/28/2022): 6-16 [facility] /Peg Allen Last Assessment & Plan: 6-16 [facility] /Peg Allen Assessment & Plan (03/19/2024 5:36 PM EDT): PHQ9 9, GAD7 , no SI , no hallucinations, no craig -BH saw today in office and pt was referred to oupt tx 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 Obrien Speech eval done : no need for ST 12/24/11 Dr. Pimentel improving no ready for walker yet, to continue on wheel chair, therapy 2 x week. Follow up in 2 months 08/03/12 Camille Sena complete recovery , occ muscle weakness continue PT f/up in 6 months S/P tonsillectomy and adenoidectomy 07/06/2010 Overview (10/28/2022): For THA 06/19/10 Obesity 04/06/2010 Overview (04/26/2024): 03/02/14 ref to Endo 01/05/16 ref to Endo.GM will recontact endo Last Assessment & Plan: 03/02/14 ref to Endo 01/05/16 ref to Endo.GM will recontact endo Assessment & Plan (03/19/2024 5:36 PM EDT): BMI 58.99 -gained 3 pounds in last month -started 2 mo ago doing diet and states initially was able to loss 20 pounds but gained again when stopped diet -states is walking at park every day -life style changes advised discussed in length today -referred today to ship captain -wants to hold on bariatric surgery option offered today -discussed about start GLP option -will start w labs and [t to f w PCP about this at her upcoming apt Immunizations Name Administration Dates Next Due DTaP 10/05/2007, 6,06/19/2004,2003,02/17/2004 DTaP / HiB / IPV 12/21/2004, 4,04/19/2004,2003 HPV 9-Valent 08/20/2021,09/19/2016 Hep A, ped/adol, 2 dose 10/15/2022,08/20/2021 Hep B, Adolescent or Pediatric 06/19/2004,2003,2003 Hib (HbOC) 12/21/2004, 4,04/19/2004,2003 IPV 01/05/2016, 7,06/19/2004,2003,02/17/2004 Influenza, IIV3, injectable 10/09/2011, 0,10/05/2007 MMR 10/05/2007,12/21/2004 Meningococcal MCV4P ACYW-135 08/20/2021,01/05/20 16 Pfizer Covid-19 Vaccine 12+ Bivalent 11/26/2022 Pneumococcal Conjugate PCV 20 03/19/2024 Pneumococcal Conjugate PCV 7 12/31/2004, 10/07/2004,06/19/2004,2003 Tdap 01/05/2016 Varicella 10/05/2007,12/21/2004 Family History Medical History Relation Name Comments DM2 Maternal Grandmother heart dx Maternal Grandmother Relation Name Status Comments Maternal Grandmother Social History Tobacco Use Types Packs/Day Years Used Date Smoking Tobacco: Never Smokeless Tobacco: Never Alcohol Use Standard Drinks/Week Comments Yes 0 (1 standard drink = 0.6 oz pur e alcohol) social Depression Answer Date Recorded Patient Health Questionnaire-9 Score 9 03/19/2024 Patient Health Questionnaire-9 Score 9 03/19/2024 Last PHQ-9: Questionnaire Data Not on file 0 03/19/2024 Housing Stability Answer Date Recorded What is your housing situation today? I have ashu irvin 01/29/[address] you li ve. Do you have problems with any of the following? None of the above 01/29/2024 Food Insecurity Answer Date Recorded Within the past 12 months, y ou worried that your food would run out before you got money to buy more: Never True 01/29/2024 Within the past 12 months,th e food you bought just didn't last and you didn't have enough money to get more: Never True Transportation Answer Date Recorded In the past 12 months, has l ack of transportation kept you from medical appts, meetings, work or from getting things needed for daily living? No 01/29/2024 Utilities Answer Date Recorded In the past 12 months, has t he electric, gas, oil or water company threatened to shut off services in your home? No 01/29/2024 Depression Answer Date Recorded Patient Health Questionnaire-2 Score 2 03/19/2024 Comments No Sex and Gender Information Value Date Recorded Sex Assigned at Female 09/16/2022 10:19 AM EDT Legal Sex Female 10:19 AM EDT Gender Identity Female 09/16/2022 10:19 AM EDT Sexual Orientation Straight 09/16/2022 10 :19 AM EDT Last Filed Vital Signs Vital Sign Reading Time Taken Comments Blood Pressure 144/68 03/19/2024 11:14 AM EDT Pulse 93 03/19/2024 11:14 AM EDT Temperature 36.2 ??C (97.2 ??F) 03/19/2024 11:14 AM E DT Respiratory Rate 20 03/19/2024 11:14 AM EDT Oxygen Saturation 98% 03/19/2024 11:14 AM EDT Inhaled Oxygen Concentration - - Weight 153 kg (337 lb 12.8 oz) 03/19/2024 11:14 AM EDT Height 160 cm (5' 3 ) 03/19/2024 11:14 AM EDT Body Mass Index 59.84 03/19/2024 11:14 AM EDT Plan of Treatment Health Maintenance Due Date Last Done Comments Diabetes: Foot Exam 2013 Eye Exam 2013 Alcohol/Substance Use Screening 2015 Family Planning (PISQ) 2018 Lipid Panel 06/09/2021 06/09/2020 Diabetes: Urine Protein Screening 2022 COVID-19 Vaccine ( season) 2024 11/26/2022, 08/20/2021, 07/31/2021 Influenza Vaccine (#1) 2024 1, 09/19/2010, 10/05/2007 Depression Monitoring (PHQ-9) 09/19/2024 03/19/2024, 03/19/2024 Diabetes: Hemoglobin A1C 09/19/2024 024, 12/10/2022, 10/17/2020, Additional history exists Pap Smear 2024 SDOH Screening 01/28/2025 01/29/2024 Chlamydia and Gonorrhea Screening 02/26/2025 02/27/2024, 08/04/2023, 06/05/2022 Depression Screening 03/19/2025 03/19/2024, 03/19/20 24 Tobacco Screening 03/19/2025 03/19/2024 DTaP/Tdap/Td Vaccines (6 - Td or Tdap) 01/05/2026 01/05/2016, 10/05/2007, 01/29/2006, Additional history exists Zoster Vaccines (1 of 2) 2053 RSV Patients and Patients Aged 60 years or older (1 - 1-dose 75+ series) 2078 Hepatitis B Vaccines Completed 06/19/2004, 01/19/2004, 2003 HIB Vaccines Completed 12/21/2004, 02/2005, 06/19/2004, Additional history exists IPV Vaccines Completed 01/05/2016, 09/17, 12/21/2004, Additional history exists HPV Vaccines Completed 08/20/2021, 09/19/2016 Meningococcal Vaccine Completed 08/20/2021, 016 HIV Screening Completed 06/05/2022 Hepatitis C Screening Completed 06/05/2022 Hepatitis A Vaccines Completed 10/15/2022, 08/20/20 21 Pneumococcal Vaccine: Pediatrics (0 to 5 Years) and At-Risk Patients (6 to 49) Years) Completed 03/19/2024, 12/31/2004, 10/07/2004, Additional history exists RSV under 20 months Aged Out No longe r eligible based on patient's age to complete this topic Rotavirus Vaccines Aged Out No longer eligible based on patient's age to complete this topic Procedures Procedure Name Priority Date/Time Associated Diagnosis Comments POCT GLYCATED HEMOGLOBIN, TOTAL Routine 03/19/2024 11:23 AM EDT Type 2 diabetes mellitus with other specified complication, without long-term current use of insulin ([facility]) CHLAMYDIA/N. GONORRHOEAE RNA, TMA, UROGENITAL Routine 02/27/2024 12:00 AM EDT Vaginal discharge ZZZ HISTORICAL HEPATITIS C AB W/REFL TO HCV RNA, QN, PCR Routine 06/05/2022 10:34 AM EDT HIV 1/2 ANTIGEN/ANTIBODY, FOURTH GENERATION W/RFL Routine 06/05/2022 10:34 AM EDT LIPID PANEL, STANDARD Routine 06/09/2020 10:45 AM EDT from Last 3 Months or Most Recently Relevant to Health Maintenance Results * (ABNORMAL) POCT HGB A1C (03/19/2024 11:23 AM EDT) Hemoglobin A1C 6.9(A) 4.0 - 6.0 % QC Media Lot # [id number] Lot# Expiration Date [id number] Blood 03/19/2024 11:2 3 AM EDT Christine Bowman MD POINT OF CARE ESTHER T ENTER/EDIT ORDERABLES Final Result * Chlamydia/N. Gonorrhoeae RNA, TMA, Urogenitial (02/27/2024 12:00 AM EDT) CT PCR NOT DETECTED Not Detect. [facility] Comment:A not detected test result does not exclude the possibilityof infection because test results can be affected byimproper specimen collection, concurrent antibiotic therapy,or the number of organisms in the specimen which may bebelow the sensitivity of the test. As with many diagnostictests, results from the Xpert CT/NG assay should beinterpreted in conjunction with other laboratory andclinical data available to the clinician.Xpert CT/NG performance has not been evaluated in patientsless than 14 years of age. The assay should not be used forthe evaluationof suspected sexual abuse or for other medico-legalindications. Additional testing is recommended in anycircumstance when false positive or false negative resultscould lead to adverse medical, social or psychologicalconsequences. NG PCR NOT DETECTED Not Detect. [facility] Comment:A not detected test result does not exclude the possibilityof infection because test results can be affected byimproper specimen collection, concurrent antibiotic therapy,or the number of organisms in the specimen which may bebelow the sensitivity of the test. As with many diagnostictests, results from the Xpert CT/NG assay should beinterpreted in conjunction with other laboratory andclinical data available to the clinician.Xpert CT/NG performance has not been evaluated in patientsless than 14 years of age. The assay should not be used forthe evaluationof suspected sexual abuse or for other medico-legalindications. Additional testing is recommended in anycircumstance when false positive or false negative resultscould lead to adverse medical, social or psychologicalconsequences. Swab (Urine, Random) 02/27/2024 02/27/2024 Narrative [facility] - 02/28/2024 2:55 AM EDT Vaginal us Olivia Giang [facility] MICROBIOLOGY - GENERAL ORD ERABLES Final Result [facility] [address] [place] [phone] * HEPATITIS C AB W/REFL TO HCV RNA, QN, PCR (06/05/2022 10:34 AM EDT) HEPATITIS C ANTIBODY NON-REACT JAC NON-REACT JAC [facility] INDEX 0.21 <1.00 [facility] Comment: ?? HCV antibody was non-reactive. There is no laboratory ?? evidence of HCV infection. ?? In most cases, no further action is required. However, if recent HCV exposure is suspected, a test for HCV RNA (test code 20653) is suggested. ?? For additional information please refer to http://[employer]/faq/FBO23m5 (This link is being provided for informational/ educational purposes only.) ?? 06/05/2022 10:3 4 AM EDT Janell PATEL HISTORICAL/NON ORDERABLE LABS Final Result Performing Organization Address [facility] de Phone Number [facility] [address] [place] [address], * HIV 1/2 ANTIGEN/ANTIBODY,FOURTH GENERATION W/RFL (06/05/2022 10:34 AM EDT) HIV-1/2 ANTIGEN AND ANTIBODIES, 4TH GENERATION W/ REFLEX NON-REACT JAC NON-REACT JAC [facility] Comment: HIV-1 antigen and HIV-1/HIV-2 antibodies were not detected. There is no laboratory evidence of HIV infection. ?? PLEASE NOTE: This information has been disclosed to you from records whose confidentiality may be protected by state law. ??If your state requires such protection, then the state law prohibits you from making any further disclosure of the information without the specific written consent of the person to whom it pertains, or as otherwise permitted by law. A general authorization for the release of medical or other information is NOT sufficient for this purpose. ? For additional information please refer to http://education.[employer]/faq/BXG173 (This link is being provided for informational/ educational purposes only.) ? The performance of this assay has not been clinically validated in patients less than 2 years old. ?? 06/05/2022 10:3 4 AM EDT Janell PATEL LAB BLOOD ORDERABLES Noemi l Result Performing Organization Address [facility]/ZIP Co de Phone Number [facility] [address] [place] [address], * (ABNORMAL) LIPID PANEL, STANDARD (06/09/2020 10:45 AM EDT) Chol/HDLC Ratio 3.0 <5.0 (calc) [facility] HDL Cholesterol 43(L) >45 mg/dL [facility] Triglycerides 91(H) <90 mg/dL [facility] Non-HDL Cholesterol 86 <120 mg/dL (calc) [facility] Comment: For patients with diabetes plus 1 major ASCVD risk ?? factor, treating to a non-HDL-C goal of <100 mg/dL ?? (LDL-C of <70 mg/dL) is considered a therapeutic ?? option. HDL Cholesterol 43(L) >45 mg/dL [facility] Cholesterol, Total 129 <170 mg/dL [facility] LDL Cholesterol 69 <110 mg/dL (calc) [facility] Comment: LDL-C is now calculated using the Lisandro-Choi ?? calculation, which is a validated novel method providing ?? better accuracy than the Friedewald equation in the ?? estimation of LDL-C. ?? Lisandro SS et al. JACQUES. 2013;310(19): 6655-1425 ?? (http://[employer]/faq/AVT097) Chol/HDLC Ratio 3.0 <5.0 (calc) [facility] Non-HDL Cholesterol 86 <120 mg/dL (calc) [facility] Comment: For patients with diabetes plus 1 major ASCVD risk ?? factor, treating to a non-HDL-C goal of <100 mg/dL ?? (LDL-C of <70 mg/dL) is considered a therapeutic ?? option. Cholesterol, Total 129 <170 mg/dL [facility] Triglycerides 91(H) <90 mg/dL [facility] LDL Cholesterol 69 <110 mg/dL (calc) [facility] Comment: LDL-C is now calculated using the Lisandro-Choi ?? calculation, which is a validated novel method providing ?? better accuracy than the Friedewald equation in the ?? estimation of LDL-C. ?? Lisandro SS et al. JACQUES. 2013;310(19): 7861-3853 ?? (http://education.[employer]/faq/JWR605) 06/09/2020 10:4 5 AM EDT us Janell Keith CN LAB BLOOD ORDERABLES Noemi ayan Result [facility] [address] from Last 3 Months or Most Recently Relevant to Health Maintenance [facility] * Guarantor: Keyona Rockwell Account Type Relation to Patient Date of Phone Billing Address Personal/Family Self [address] [place] [address] Care Teams Manufacturing Advisor Relationship Specialty Start Date End Date Felisa Osman MD [address] [place] [address] PCP - General Family Medicine 10/26/20
[2024-12-23 03:45] VITALS: BP 133/62; PULSE 72; RESP 22; TEMP 36.6; O2SAT 97
[2024-12-23 04:52] LABS: Influenza A PCR NEGATIVE (Negative); Influenza B PCR NEGATIVE (Negative); Resp Syncy Virus RNA Qual PCR NEGATIVE (Negative); SARS COV2 PCR INHOUSE NEGATIVE (Negative)
--- OUTSIDE RECORDS SUMMARY | 2024-12-23 04:53 | XMS_ITS | Clinical Summary ---
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 DX:Adjustment disorder of adolescence; COMMENT: 05-02 [facility] /Peg Allen Elevated blood-pressure read ing without diagnosis of hypertension 09/19/2016 DX:Elevated blood-pr essure reading without diagnosis of hypertension Snoring 11/19/2016 DX:Snoring; COMM ENT: 11-01 n/s for ent appt Family History Relation Name Status Comments Maternal Grandmother Alive Mother Alive Social History Tobacco Use Types Packs/Day Years Used Date Smoking Tobacco: Never Alcohol Use Standard Drinks/Week Comments Not Asked 0 (1 standard drink = 0.6 oz pur e alcohol) Sex and Gender Information Value Date Recorded Sex Assigned at Not on file Gender Identity Not on file Sexual Orientation Not on file Obstetrics History Plan of Treatment Health Maintenance Due Date Last Done Comments Gonorrhea/Chlamydia Screening 2003 Pneumococcal Vaccine: Pediatrics (0 to 5 Years) and At-Risk Patients (6 to 64 Years) (1 of 1 - PPSV23 or PCV20) 2009 12/31/2004, 10/07/2004, 06/19/2004, Additional history exists HPV Vaccines (2 - 2-dose series) 03/19/2017 09/19/2016 Annual Well Child Visit (3-21 years old) 10/20/2022 09/19/2016, 08/10/2015, 03/02/2014, Additional history exists Cholesterol Screening (Lipid Panel) 10/20/2022 Depression Screening 10/20/2022 HIV Screening 10/20/2022 Hepatitis C Screening 10/20/2022 Social Influencers of Health Screening 10/20/2022 COVID-19 Vaccine ( season) 2024 Influenza Vaccine (#1) 2024 1, 09/19/2010, 10/05/2007 DTaP,Tdap,and Td Vaccines (6 - Td or Tdap) 01/05/2026 01/05/2016, 10/05/2007, 01/29/2006, Additional history exists Hepatitis B Vaccines Completed 06/19/2004, 01/19/2004, 2003 HIB Vaccines Completed 12/21/2004, 01/2004, 04/19/2004, Additional history exists MMR Vaccines Completed 10/05/2007, 12/21/2004 Varicella Vaccines Completed 10/05/2007, 12/21/2004 IPV Vaccines Completed 01/05/2016, 09/17, 12/21/2004, Additional history exists Meningococcal ACWY Vaccine Aged Out 01/05/2016 N o longer eligible based on patient's age to complete this topic Hepatitis A Vaccines Aged Out No long er eligible based on patient's age to complete this topic RSV Immunization Patients Under 20 months Aged Out No longer eligible based on patient's age to complete this topic Care Teams Registration Representative Relationship Specialty Start Date End Date Stanislaw Haines MD PCP - General 02/14/10
--- OUTSIDE RECORDS SUMMARY | 2024-12-23 04:53 | XMS_ITS | Encounter Summary ---
Demographics Address [address] [place] [address] Work Phone Mobile Phone Email Address Preferred Language es Marital Status Single Tenriism Affiliation Unknown Race Other Race Ethnic Group or Author Organization [employer] Address [address] [place] [address] Care Team Providers Care [employer] Name Role Phone Felisa Osman MD Primary Care Provider [phone] Encounter Details Date Type Department Care Team (Late st Contact Info) Description 04/22/2024 Orders Only [facility] [address] [place], [place] [phone] Felisa Osman MD [address] [place], [place] [phone] Social History Tobacco Use Types Packs/Day Years [...] Orientation Straight 09/16/2022 10 :19 AM EDT documented as of this encounter Plan of Treatment Not on file documented as of this encounter Visit Diagnoses Not on filedocumented in this encounter Additional Health Concerns Assessment Noted Time PHQ-9 Depression Total Score: 9 03/19/20 24 12:04 PM EDT documented as of this encounter Care Teams [employer] Relationship Specialty Start Date End Date Felisa Osman MD [address] [place] [id number] PCP - General Family Medicine 10/26/20 documented as of this encounter
--- OUTSIDE RECORDS SUMMARY | 2024-12-23 04:53 | XMS_ITS | Encounter Summary ---
Demographics Address [address] [place] [address] Work Phone Mobile Phone Email Address Preferred Language es Marital Status Single Baptist Affiliation Unknown Race Other Race Ethnic Group or Author Organization [employer] Address [address] [place] [address] Care Team Providers Care Electrical Controls Assembler Name Role Phone Felisa Osman MD Primary Care Provider [phone] Encounter Details Date Type Department Care Team (Late st Contact Info) Description 03/25/2024 Orders Only [facility] MED[facility]INE [address] [place], [place] [phone] Felisa Osman MD [address] [place], [place] [phone] Type 2 diabetes mellitus with other specified complication, without long-term current use of insulin ([facility]) (Primary Dx); Elevated blood-pressure reading without diagnosis of hypertension; Irregular menstruation; Screening for lipid disorders; Routine screening for STI (sexually transmitted infection); Immunity status testing Social History Tobacco Use Types Packs/Day Years [...] as of this encounter Plan of Treatment Scheduled Orders Name Type Priority Associated Diagnoses Orde r Schedule Syphilis Screen Lab Routine Routine screening for STI (sexually transmitted infection) Expected: 03/25/2024 (Approximate), Expires: 03/25/2025 Hepatitis C Antibody with Reflex to HCV, RNA, Quantitative, Real-Time PCR Lab Routine Routine screening for STI (sexually transmitted infection) Expected: 03/25/2024 (Approximate), Expires: 03/25/2025 Hepatitis B Surface Antibody, Qualitative Lab Routine Routine screening for STI (sexually transmitted infection) Expected: 03/25/2024 (Approximate), Expires: 03/25/2025 Hepatitis B Core Antibody, Total Lab Routine Routine screening for STI (sexually transmitted infection) Expected: 03/25/2024 (Approximate), Expires: 03/25/2025 Chlamydia/N. Gonorrhoeae RNA, TMA, Urogenitial Microbiology Routine Routine screening for STI (sexually transmitted infection) Expected: 03/25/2024 (Approximate), Expires: 03/25/2025 HIV-1/2 Antigen and Antibodies, Fourth Generation, with Reflexes Lab Routine Routine screening for STI (sexually transmitted infection) Expected: 03/25/2024 (Approximate), Expires: 03/25/2025 Hepatitis B surface antigen, EIA Lab Routine Routine screening for STI (sexually transmitted infection) Expected: 03/25/2024 (Approximate), Expires: 03/25/2025 Hepatitis A Antibody, Total Lab Routine Immunity status testing Expected: 03/25/2024 (Approximate), Expires: 03/25/2025 Vitamin B12/Folate, Serum Panel Lab Routine Type 2 diabetes mellitus with other specified complication, without long-term current use of insulin ([facility]) Expected: 03/25/2024 (Approximate), Expires: 03/25/2025 Albumin, Random Urine W/Creatinine Lab Routine Type 2 diabetes mellitus with other specified complication, without long-term current use of insulin ([facility]) Expected: 03/25/2024 (Approximate), Expires: 03/25/2025 Hemoglobin A1c Lab Routine Type 2 diabetes mellitus with other specified complication, without long-term current use of insulin ([facility]) Expected: 03/25/2024 (Approximate), Expires: 03/25/2025 Comprehensive Metabolic Panel Lab Routine Type 2 diabetes mellitus with other specified complication, without long-term current use of insulin ([facility]) Elevated blood-pressure reading without diagnosis of hypertension Expected: 03/25/2024 (Approximate), Expires: 03/25/2025 Lipid Panel with Reflex to Direct LDL Lab Routine Type 2 diabetes mellitus with other specified complication, without long-term current use of insulin ([facility]) Expected: 03/25/2024 (Approximate), Expires: 03/25/2025 TSH with Reflex to Free T4 Lab Routine Elevated blood-pressure reading without diagnosis of hypertension Expected: 03/25/2024 (Approximate), Expires: 03/25/2025 Sex Hormone Binding Globulin (SHBG) Lab Routine Irregular menstruation Expected: 03/25/2024 (Approximate), Expires: 03/25/2025 Testosterone, Free (Dialysis) And Total, MS Lab Routine Irregular menstruation Expected: 03/25/2024 (Approximate), Expires: 03/25/2025 Progesterone, LC/MS Lab Routine Irregular menstruation Expected: 03/25/2024 (Approximate), Expires: 03/25/2025 FSH Lab Routine Irregular menstruation Expected: 03/25/2024, Expires: 03/25/2025 LH Lab Routine Irregular menstruation Expected: 03/25/2024 (Approximate), Expires: 03/25/2025 documented as of this encounter Visit Diagnoses Diagnosis Type 2 diabetes mellitus with other specified complication, without long-term current use of insulin ([facility])- Primary Elevated blood-pressure reading without diagnosis of hypertension Elevated blood pressure reading without diagnosis of hypertension Irregular menstruation Irregular menstrual cycle Screening for lipid disorders Routine screening for STI (sexually transmitted infection) Screening examination for venereal disease Immunity status testing Antibody response examination documented in this encounter Additional Health Concerns Assessment Noted Time PHQ-9 Depression Total Score: 9 03/19/20 24 12:04 PM EDT documented as of this encounter Care Teams Electrical Controls Assembler Relationship Specialty Start Date End Date Felisa Osman MD [address] [place] [id number] PCP - General Family Medicine 10/26/20 documented as of this encounter
--- OUTSIDE RECORDS SUMMARY | 2024-12-23 04:53 | XMS_ITS | Encounter Summary ---
Demographics Address [address] [place] [address] Work Phone Mobile Phone Email Address Preferred Language es Marital Status Single Amish Affiliation Unknown Race Other Race Ethnic Group or Author Organization [employer] Address [address] [place] [address] Care Team Providers Care Manager Database Name Role Phone Felisa Osman MD Primary Care Provider [phone] Encounter Details Date Type Department Care Team (Late st Contact Info) Description 12/11/2022 Orders Only [facility] [address] [place], [place] [phone] Felisa Osman MD [address] [place] [address] Type 2 diabetes mellitus with hyperglycemia, without long-term current use of insulin ([facility]) (Primary Dx) Social History Tobacco Use Types Packs/Day Years Used Date Smoking Tobacco: Never Assessed Comments Unknown Sex and Gender Information Value Date Recorded Sex Assigned at Female 09/16/2022 10:19 AM EDT Legal Sex Female 10:19 AM EDT Gender Identity Female 09/16/2022 10:19 AM EDT Sexual Orientation Straight 09/16/2022 10 :19 AM EDT COVID-19 Exposure Response Date Recorded In the last 10 days, have yo u been in contact with someone who was confirmed or suspected to have Coronavirus/COVID-19? No / Unsure 11/26/2022 9:46 AM EST documented as of this encounter Progress Notes * Linda Nieto RN - 12/11/2022 9:31 AM EST Combined with another encounter documented in this encounter Plan of Treatment Not on file documented as of this encounter Visit Diagnoses Diagnosis Type 2 diabetes mellitus with hyperglycemia, without long-term current use of insulin ([facility])- Primary documented in this encounter Care Teams Manager Database Relationship Specialty Start Date End Date Felisa Osman MD [address] [place] [id number] PCP - General Family Medicine 10/26/20 documented as of this encounter
== END 2024-12-23 05:36 | disposition home or self-care (01) ==
PROVIDERS: Emergency Provider Emergency Medicine; PCP Family Medicine
DX: R05.9 Cough, unspecified (principal); R06.02 Shortness of breath; R09.81 Nasal congestion; Z03.818 Encounter for observation for suspected exposure to other biological agents ruled out
CPT/HCPCS: 0241U; 71046; 99282; 99284

== ENCOUNTER → 2024-12-23 00:30 | Outpatient (BNV) | payer MEDICAID, SELFPAY | PROVIDERS: Emergency Provider Emergency Medicine; PCP Family Medicine; Visit Provider Radiology Neuroradiology | DX: J98.19 Other pulmonary collapse (principal) | CPT/HCPCS: 71046 ==